=== PATIENT | male | born 1945 | race Caucasian/White ===

== ENCOUNTER 2017-02-08 06:30 | Day surgery (SDC) | payer MEDICARE, OTHER ==
[~2017-02-08] VITALS: Ht 182.9 cm; Wt 107.0 kg
--- NOTE | ~2017-02-08 | OP ---
PATIENT NAME: HELLEN CARBAJAL MEDICAL RECORD: [id number] :44 LOCATION:[facility] ADMISSION DATE: SURGEON: HATTIE NICKERSON MD DATE OF OPERATION: 02/08/2017 PREOPERATIVE DIAGNOSIS: End-stage renal disease, N18.6. POSTOPERATIVE DIAGNOSIS: End-stage renal disease, N18.6. OPERATION PERFORMED: Implantation of a right forearm PTFE loop AV graft using 6-mm diameter standard wall [place] Propaten PTFE. SURGEON: Hattie Nickerson MD. ANESTHESIA: Axillary block plus general with LMA per SALES ORDER ADMINISTRATOR. REFERRING PHYSICIAN: Ling Ivey MD. PREOPERATIVE NOTE: Mr. Carbajal is a 71-year-old white male patient of Dr. Ivey and Dr. Ferrer of [place]. He has end-stage renal disease and is on hemodialysis and needs dialysis access. He is brought to the operating room at this time with plans to try to create a fistula. If that is not possible or successful, then implant a graft in his right arm. PROCEDURE IN DETAIL: Under axillary block supplemented with general anesthesia with an LMA per SALES ORDER ADMINISTRATOR, the patient is prepped and draped in a sterile manner. He was examined with ultrasound after applying topical nitroglycerin paste and with the use of a [place] drain as a proximal venous tourniquet. The cephalic vein in the forearm and wrist appeared suitable, the radial artery was large and not diseased. I thought that it was possible that an AV fistula there might be possible. I made a longitudinal incision and dissected the vein and prepared it for an end-to-side anastomosis. Tributaries and branches were divided between 3-0 Vicryl ligatures or Hemoclips. The vein was beveled and flushed with heparinized saline and hydrostatic dilation performed. The artery was exposed and controlled with doubly-looped Silastic tapes. It was opened and flushed proximally and distally with heparinized saline and the end-of-vein to [id number] anastomosis was carried out with running 6-0 Prolene. Upon completion of the anastomosis and release of the occluding loops, which was after application of Evicel, good flow was initially established in the fistula. 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 I subsequently abandoned the fistula, which had gone on to thrombose spontaneously. It was ligated with a 3-0 Vicryl in multiple and the wound then irrigated with saline. Some fibrillar hemostatic material was necessary for hemostasis as well as electrocautery. The wound was infiltrated and irrigated with 0.25% Marcaine with epinephrine and closed with interrupted inverted 3-0 Vicryl and running intracuticular 4-0 Monocryl after it was used for counterincision for the next part of the operation. I made a transverse incision and exposed the basilic vein on the medial aspect of the arm and the brachial artery. The vessels were controlled with Silastic tapes. I chose a 6-mm diameter standard wall thickness [place] Propaten PTFE graft. It was beveled and anastomosed end-to-side of basilic vein with running OPERATIVE REPORT [id number] HELLEN CARBAJAL 6-0 Prolene after the vein was flushed with heparinized saline proximally and distally. That anastomosis also was treated with Evicel. The graft was placed in a loop configuration subcutaneous tunnel using the initial distal forearm incision for counter incision. It was beveled and shortened and anastomosed end-to-side to the brachial artery with 6-0 Prolene after the artery was opened and flushed with heparinized saline and the graft flushed with heparinized saline, again, after being placed in the tunnel before the anastomosis. When the anastomosis was complete and the suture line treated with Evicel, the occluding loops and clamps were released and excellent flow was established in the new graft. This wound also was irrigated with saline and irrigated with 0.25% Marcaine with epinephrine. The wound was dry, was closed with interrupted inverted 3-0 Vicryl and running intracuticular 4-0 Monocryl and Dermabond glue. Both incisions were dressed with Maxorb Ag, Tegaderm and Cavilon skin prep. The patient was then awakened and with a satisfactorily functioning new AV graft taken to the recovery room. Blood loss during the operation was trivial and was unreplaced. All sponges, instruments and needles were accounted for. No drain was used and no surgical specimen was submitted for histopathology. PLAN: The patient will be discharged later today from the outpatient department and will continue his usual diet, medications and dialysis schedule. He will return to see me in my office in 10-14 days and is given a hand-signed printed prescription for tramadol 50 mg #20. He can take 1 p.o. q.4 hours p.r.n. pain. He is advised elevate his arm to help reduce swelling and edema. He and his brother are given my personal cell phone number, which he may use to call me over this holiday weekend if he has any problems. TRANSINT:[id number] Voice Confirmation ID: [id number] DOCUMENT ID: [id number] HATTIE NICKERSON MD CC: LING IVEY MD and GUILLERMO FERRER MD [id number] DICTATION DATE: 02/08/17 1337 INSPECTOR PAPER PRODUCTS: 02/08/17 2233 [facility] 02/08/17 [id number] [place] [address]
[2017-02-08] MEDS ORDERED: CARAFATE1 G PO (07:14)
[2017-02-08] MEDS ORDERED: FUROSEMIDE40 MG PO (07:15)
[2017-02-08] MEDS ORDERED: COREG 3.1253.125 MG PO (07:16)
[2017-02-08] MEDS ORDERED: HYTRIN5 MG PO (07:17)
[2017-02-08] MEDS ORDERED: PROTONIX40 MG PO (07:17)
[2017-02-08] MEDS ORDERED: CORDARONE200 MG PO (07:18)
[2017-02-08 07:56] VITALS: BP 105/67; Ht 182.9 cm; Wt 107.0 kg
[2017-02-08 08:21] LABS: EOSINOPHILS 1.8 % (0-7); HEMATOCRIT 29.1 % (42.0-54.0); HEMOGLOBIN 9.2 g/dL (13.5-17.5); IMMATURE GRANULOCYTES 0.1 % (0-5); LYMPHOCYTES 19.1 % (15-50); MCH 27.8 pg (26.0-34.0); MCHC 31.6 g/dL (31.0-37.0); MCV 87.9 fL (80.0-100.0); MEAN PLATELET VOLUME 9.5 fL (7.4-10.4); MONOCYTES 9.6 % (2-11); NEUTROPHILS 68.4 % (40-80); PLATELET COUNT 210 10x3/uL (130-400); RBC 3.31 10x6/uL (4.20-6.10); RDW 19.5 % (11.5-14.5); WBC 7.1 10x3/uL (4.8-10.8)
[2017-02-08 08:42] LABS: APTT 32.9 SECONDS (22.8-39.4); INR 1.42 (0.85-1.17); PROTIME 17.3 SECONDS (11.6-15.0)
[2017-02-08 08:46] LABS: ANION GAP 15.2 mmol/L (8-16); CALCIUM 8.3 mg/dL (8.5-10.1); CARBON DIOXIDE 25.2 mmol/L (21.0-32.0); CREATININE - SERUM 4.4 mg/dL (0.6-1.3); POTASSIUM - SERUM 3.4 mmol/L (3.5-5.1)
[2017-02-08] MEDS ORDERED: ULTRAM50 MG PO (13:13)
== END 2017-02-08 15:10 | disposition home or self-care (01) ==
LOC: D.OPS 06:30
PROVIDERS: Internal Medicine Nephrology
DX: E11.22 Type 2 diabetes mellitus with diabetic chronic kidney disease (principal); I13.2 Hypertensive heart and chronic kidney disease with heart failure and with stage 5 chronic kidney disease, or end stage renal disease; I50.9 Heart failure, unspecified; N18.6 End stage renal disease; Z95.5 Presence of coronary angioplasty implant and graft; Z95.1 Presence of aortocoronary bypass graft; J44.9 Chronic obstructive pulmonary disease, unspecified

== ENCOUNTER 2017-03-15 06:32 | Day surgery (SDC) | payer MEDICARE, OTHER ==
[~2017-03-15] VITALS: Ht 182.9 cm; Wt 105.2 kg
[~2017-03-15 06:32] MED LIST: CARAFATE1 G PO; CORDARONE200 MG PO; COREG 3.1253.125 MG PO; FUROSEMIDE40 MG PO; HYTRIN5 MG PO; PROTONIX40 MG PO; ULTRAM50 MG PO
[2017-03-15 07:26] LABS: BASOPHILS 1.3 % (0-2); EOSINOPHILS 2.9 % (0-7); HEMATOCRIT 38.5 % (42.0-54.0); HEMOGLOBIN 12.1 g/dL (13.5-17.5); IMMATURE GRANULOCYTES 0.2 % (0-5); LYMPHOCYTES 23.1 % (15-50); MCH 29.7 pg (26.0-34.0); MCHC 31.4 g/dL (31.0-37.0); MCV 94.6 fL (80.0-100.0); MEAN PLATELET VOLUME 9.4 fL (7.4-10.4); MONOCYTES 8.9 % (2-11); NEUTROPHILS 63.6 % (40-80); PLATELET COUNT 202 10x3/uL (130-400); RBC 4.07 10x6/uL (4.20-6.10); RDW 22.1 % (11.5-14.5); WBC 6.2 10x3/uL (4.8-10.8)
[2017-03-15 07:32] LABS: APTT 28.2 SECONDS (22.8-39.4); INR 1.37 (0.85-1.17); PROTIME 16.8 SECONDS (11.6-15.0)
[2017-03-15 07:50] LABS: ANION GAP 14.1 mmol/L (8-16); CARBON DIOXIDE 27.3 mmol/L (21.0-32.0); CREATININE - SERUM 4.1 mg/dL (0.6-1.3); POTASSIUM - SERUM 3.4 mmol/L (3.5-5.1)
[2017-03-15] MEDS ORDERED: NEURONTIN 400400 MG PO (08:04)
[2017-03-15] MEDS ORDERED: BAYER CHEWABLE81 MG PO (08:04)
[2017-03-15 08:17] VITALS: BP 103/51; Ht 182.9 cm; Wt 105.2 kg
--- NOTE | 2017-03-15 11:00 | NUR ---
TIFFANIE METCALF IN USE ON HIGH, NO SCD PT CAN NOT REMEMBER IF HX OF BLOOD CLOTS
--- NOTE | 2017-03-15 12:09 | NUR ---
USE SLING UNTIL FEELING AND MOTION RETURNS R/T TO BLOCK NOT PROCEDURE
[2017-03-15] MEDS ORDERED: PLAVIX75 MG PO (12:28)
--- NOTE | 2017-03-16 14:15 | OP ---
PATIENT NAME: HELLEN CARBAJAL MEDICAL RECORD: [id number] :44 LOCATION:[facility] ADMISSION DATE: SURGEON: HATTIE NICKERSON MD DATE OF OPERATION: 03/15/2017 REFERRING PHYSICIAN: Dr. Ling Ivey. PREOPERATIVE DIAGNOSES: End-stage renal disease with dependence on chronic hemodialysis and status post recent implantation of right forearm brachial artery to break to basilic vein PTFE loop AV graft, now with thrombosis of the graft. POSTOPERATIVE DIAGNOSES: End-stage renal disease with dependence on chronic hemodialysis and status post recent implantation of right forearm brachial artery to break to basilic vein PTFE loop AV graft, now with thrombosis of the graft. OPERATION PERFORMED: Percutaneous fistulogram with ultrasound-guided access times 2 and AngioJet mechanical thrombolysis and balloon angioplasty of venous anastomotic and proximal of basilic vein stenosis and selective catheterization and performance of a right brachial artery arteriogram to rule out embolus. SURGEON: Hattie Nickerson MD. ANESTHESIA: Supraclavicular block per POCKET ASSEMBLER with additional sedation. PREOPERATIVE NOTE: Mr. Carbajal is a 71-year-old white male with end-stage renal disease, dialyzing now with a right internal jugular tunneled dialysis catheter. I recently implanted a right forearm loop PTFE graft and it was noted to be thrombosed on his first visit to my office postop. He is brought back to the operating room now to perform a fistulogram and thrombectomy, possibly open, though I hope to be able to do it with endovascular technique. The arm is quite swollen and I believe that there is probably plenty of soft tissue pressure up against the graft to allow this. The patient does have dermal flare with erythema of the skin overlying the course of the graft and still he is receiving antibiotic therapy for this with vancomycin at dialysis. DESCRIPTION OF PROCEDURE: This patient under nerve block in supine position and prepped and draped in a sterile manner and sedated and monitored per POCKET ASSEMBLER. The graft was accessed with ultrasound guidance in the venous limb with micropuncture technique and a 6-Saudi Arabian introducer was inserted and directed in an antegrade manner towards the venous anastomosis. Contrast was injected under minimal pressure and extensive thrombus was seen in the venous limb of the graft and in the basilic vein just above the anastomosis. This was confirmed on ultrasound with the clot extending about an inch above the venous anastomosis. Over a 0.035 angled Glidewire, I then used an AngioJet to lyse thrombus in this limb of the graft and in the venous anastomosis and outflow and I used then a 6 mm angioplasty balloon to dilate a stricture of about 95% there in the venous anastomosis. Repeated contrast injection revealed persistent or rebound type of stenosis and I subsequently dilated this entire area with an 8 mm diameter x 60 mm long angioplasty balloon. This required replacement of the 6-Saudi Arabian introducer for the 7-Saudi Arabian introducer. Repeated contrast injection looked good other than some persistent roughening of the margins of the vein. The graft was OPERATIVE REPORT [id number] HELLEN CARBAJAL accessed the second time, still in the venous limb with micropuncture technique and ultrasound guidance and a 6-Saudi Arabian sheath inserted. This was directed in an antegrade manner towards the arterial anastomosis. A 0.035 Glidewire was passed and this wire did cross the arterial anastomosis into the brachial artery. I used the AngioJet device to lyse thrombus within the body and arterial limb of the graft and then passed a glide catheter over the wire up into the brachial artery selectively and performed an angiogram, which revealed good runoff through the ulnar and radial arteries without evidence of embolus or thrombosis or stenosis. The plug was then removed from the arterial anastomosis with a 4-Saudi Arabian Hernan embolectomy catheter and at that point, an excellent thrill returned to the graft and good continuous pulsatile Doppler flow was noted. I did perform another contrast injection to visualize the venous anastomosis and there was some return of stenosis then and I repeatedly dilated it with the 8-mm diameter balloon and achieved essentially 0% residual stenosis, although there was still some roughening or irregularity of the margins of the edges of the vein. The patient was given 3000 units of heparin during the procedure and this was not reversed. The sheaths were removed and hemostasis obtained with 2 pyhjha-[id number] 4-0 Prolene sutures and some direct pressure for about 5 minutes. The puncture sites were dressed with Ultrafoam and Cavilon with Tegaderm. The patient was awakened from sedation and taken to the recovery room in stable condition. Blood loss during the operation was about 10 cc, none was replaced intraoperatively. All sponges, instruments and needles were accounted for and no drain was used. PLAN: I will plan for the patient to go home today and continue his home medications, diet and dialysis schedule. He is advised to wear a sling for about 24 hours until his neurologic function returns in his arm as the nerve block wears off. After that time, he can use his arm as tolerated. He is advised elevate the arm higher than his heart off and on or as much as possible to help diminish the edema. He is given no new prescriptions today, but is given an appointment to return to see me in my office next week, on . I am also going to give him a prescription today for him to start on Plavix 75 mg 1 daily with plans to treat him with this for 1 month and hopefully will be able to discontinue it. TRANSINT:[id number] Voice Confirmation ID: [id number] DOCUMENT ID: [id number] HATTIE NICKERSON MD at 1415 CC: LING IVEY MD [id number] DICTATION DATE: 03/15/171246 METROLOGY SPECIALIST: 03/15/172054 [facility] 03/15/17 [id number] [place] [address]
== END 2017-03-15 13:30 | disposition home or self-care (01) ==
LOC: D.OPS 06:32
PROVIDERS: Anesthesiology
DX: T82.868A Thrombosis due to vascular prosthetic devices, implants and grafts, initial encounter (principal); N18.6 End stage renal disease; Z99.2 Dependence on renal dialysis; Z79.2 Long term (current) use of antibiotics

== ENCOUNTER → 2017-07-19 13:50 | Outpatient (CLI) | payer MEDICARE, OTHER ==
[2017-03-15 08:17] VITALS: BMI 31.5
[~2017-07-19 13:50] MED LIST changes: +BAYER CHEWABLE81 MG PO; +NEURONTIN 400400 MG PO; +PLAVIX75 MG PO
== END | disposition home or self-care (01) ==
LOC: D.CT 06-28 10:30
DX: I73.9 Peripheral vascular disease, unspecified (principal)

== ENCOUNTER 2017-07-26 07:02 | Day surgery (SDC) | payer MEDICARE, OTHER ==
[2017-07-26 07:31] LABS: BASOPHILS 0.7 % (0-2); HEMATOCRIT 33.5 % (42.0-54.0); HEMOGLOBIN 11.1 g/dL (13.5-17.5); IMMATURE GRANULOCYTES 0.2 % (0-5); LYMPHOCYTES 16.6 % (15-50); MCH 33.2 pg (26.0-34.0); MCHC 33.1 g/dL (31.0-37.0); MCV 100.3 fL (80.0-100.0); MEAN PLATELET VOLUME 11.4 fL (7.4-10.4); MONOCYTES 8.8 % (2-11); NEUTROPHILS 70.7 % (40-80); RBC 3.34 10x6/uL (4.20-6.10); RDW 18.3 % (11.5-14.5); WBC 5.4 10x3/uL (4.8-10.8)
[2017-07-26 07:32] LABS: PLATELET COUNT 155 10x3/uL (130-400)
[2017-07-26 07:38] LABS: APTT 31.8 SECONDS (22.8-39.4); INR 1.56 (0.85-1.17); PROTIME 18.6 SECONDS (11.6-15.0)
[2017-07-26 07:48] LABS: ANION GAP 16.8 mmol/L (8-16); CALCIUM 7.9 mg/dL (8.5-10.1); CARBON DIOXIDE 24.2 mmol/L (21.0-32.0); CREATININE - SERUM 6.4 mg/dL (0.6-1.3)
[2017-07-26 09:30] VITALS: BP 130/67; BMI 31.2
--- NOTE | 2017-07-26 14:07 | NUR ---
PT STATES HAS SLIGHT HEADACHE
--- NOTE | 2017-07-26 15:01 | NUR ---
IV DC WITH CATHER TIP INTACT
--- NOTE | 2017-07-26 15:37 | NUR ---
1400 SPOKE WITH MACY KUHN APN , NEW ORDERS, ALL ORDERS FAXED TO [facility] PER MACY KUHN APN, INFORMED OF ALL NICKERSON ORDERS
--- NOTE | 2017-08-01 10:26 | OP ---
PATIENT NAME: HELLEN CARBAJAL MEDICAL RECORD: [id number] :44 [facility] ADMISSION DATE: SURGEON: HATTIE NICKERSON MD DATE OF OPERATION: 07/26/2017 PREOPERATIVE DIAGNOSES: End-stage renal disease and dependence on hemodialysis and thrombosis of right forearm PTFE loop AV graft. OPERATION PERFORMED: Ultrasound-guided access times 2, fistulogram, AngioJet mechanical thrombolysis, balloon angioplasty of recurrent venous anastomotic stenosis, drug-coated balloon angioplasty of drug-coated stenosis, and selective brachial artery arteriogram. SURGEON: Hattie Nickerson MD ANESTHESIA: General with LMA per COMMUNITY DEVELOPMENT MANAGER. REFERRING PHYSICIAN: Dr. Ivey. PREOPERATIVE NOTE: Mr. Carbajal is a very nice 72-year-old white male with end-stage renal disease, presently on hemodialysis. Not too long ago, I implanted a forearm loop PTFE graft on the right and it has thrombosed a couple of times and had a couple of interventions. It thrombosed again. On Saturday of this week, I inserted a HemoSplit catheter at [facility] and have him come to the hospital today for another attempt to salvage the graft. Under anesthesia in supine position, the patient was prepped and draped in sterile manner. The fistula was accessed times 2 with ultrasound guidance and micropuncture technique. Two 6-Dominican introducers were inserted in opposing directions accessing via the venous limb of the loop graft. The venous limb was then crossed with a 0.035 angled Glidewire and an AngioJet catheter then used to lyse thrombus within the venous portion of the graft and within the basilic vein, which it was anastomosed to. A 6 mm angioplasty balloon was then used to dilate the venous limb of the graft and the venous anastomosis. There was a 70% to 80% recurrent stenosis at the venous anastomosis. The patient was systemically heparinized with 5000 units of heparin and the venous runoff examined with contrast injection and digital subtraction technique. This demonstrated some residual thrombus and residual mild stenosis in the basilic vein above the anastomosis. These areas were redilated again with a larger 7mm diameter balloon and then the segment flushed with heparinized saline. The opposing introducer was then utilized. A 0.035 Glidewire was used to cross the arterial anastomosis and passed into the brachial artery in order to obtain a selective brachial arteriogram. An angled glide catheter was inserted into the proximal brachial artery and contrast injected and digital subtraction angiography demonstrated an occluded arterial limb as one would expect and no evidence of embolic phenomenon. The arterial plug was then pulled with an over the wire 5-Dominican Hernan embolectomy catheter and thrombus within the body of the graft and the arterial limb lysed with the AngioJet and the angioplasty balloon used to further open the graft and macerate residual thrombus. Pulsatile inflow was restored to the graft. Repeat contrast injection through a selective brachial artery catheter demonstrated flow in the graft without evidence of an arterial anastomotic stenosis and there was some thrombus in the distal brachial artery. The guidewire and catheter were manipulated into the distal brachial artery and the OPERATIVE REPORT [id number] HELLEN CARBAJAL thrombus removed there with passage of the over the wire Hernan embolectomy catheter. When flow was thus restored in the graft, the venous anastomosis was again imaged and the stenosis noted to be somewhat elastic and recurring. It was dilated again then with a 7-mm diameter Conquest angioplasty high pressure balloon inflated up to 20 atmospheres and held inflated for 1 minute. After it was deflated, repeated contrast injection demonstrated flow restored in the fistula and a very nice angiographic result with complete ablation of the stenosis. Because this was a recurring problem and wishing to avoid the use of a stent in this location that is the PTFE to basilic vein anastomosis at the level of the antecubital space, I used a Lutonix 8 mm x 60 mm drug-coated balloon and as per protocol this was inflated up to 20 atmospheres of pressure in the venous anastomosis and left inflated there for 2 minutes. The balloon was deflated and the catheter removed and repeat contrast injection revealed no evidence of any residual stenosis and good flow in the graft. The introducers were removed and hemostasis obtained at the puncture sites with 4-0 Prolene ysmjrm-[id number]-qeobo sutures. Also to achieve hemostasis, 10 mg of protamine was administered. The patient tolerated all of this quite well and was awakened and taken to the recovery room with a good thrill and bruit over the graft. Blood loss was about 50 cc, perhaps, none was replaced certainly. All sponges, instruments, and needles were accounted for. No drain was used and no surgical specimen was submitted for histopathology. I had the patient given 150 mg dose of Plavix in the recovery room and tomorrow he will resume his usual daily dose of Plavix or clopidogrel 75 mg p.o. daily and aspirin 81 mg enteric coated 1 p.o. daily. He will resume his usual diabetic renal diet and continue all of his other medications and continue his routine dialysis schedule. The dialysis unit may begin using the AV graft at his next dialysis session. I would like to see him back at the [facility] in 2-3 weeks on Saturday and assuming the graft is working and it has proven to be likely a reliable access then I can remove the tunneled dialysis catheter at that time. TRANSINT:[id number] Voice Confirmation ID: [id number] DOCUMENT ID: [id number] HATTIE NICKERSON MD at 1026 CC: LING IVEY MD [id number] DICTATION DATE: 07/26/17 1406 APPLICATIONS SCIENTIST: 07/26/17 1438 [facility] 07/26/[address] [address]
== END 2017-07-26 15:15 | disposition home or self-care (01) ==
LOC: D.OPS 07:02
PROVIDERS: Surgery
DX: E11.22 Type 2 diabetes mellitus with diabetic chronic kidney disease (principal); I12.0 Hypertensive chronic kidney disease with stage 5 chronic kidney disease or end stage renal disease; N18.6 End stage renal disease; Z99.2 Dependence on renal dialysis; I25.10 Atherosclerotic heart disease of native coronary artery without angina pectoris; J44.9 Chronic obstructive pulmonary disease, unspecified; G47.30 Sleep apnea, unspecified; K21.9 Gastro-esophageal reflux disease without esophagitis; Z95.1 Presence of aortocoronary bypass graft; Z01.812 Encounter for preprocedural laboratory examination

== ENCOUNTER 2017-09-21 14:03 | Inpatient (IN) | payer MEDICARE, OTHER ==
[~2017-09-21] VITALS: Ht 182.9 cm; Wt 103.4 kg
[2017-09-21 15:35] LABS: BASOPHILS 0.7 % (0-2); EOSINOPHILS 1.8 % (0-7); HEMATOCRIT 35.9 % (42.0-54.0); HEMOGLOBIN 12.2 g/dL (13.5-17.5); IMMATURE GRANULOCYTES 0.2 % (0-5); MCH 34.1 pg (26.0-34.0); MCV 100.3 fL (80.0-100.0); MEAN PLATELET VOLUME 10.7 fL (7.4-10.4); MONOCYTES 5.7 % (2-11); NEUTROPHILS 76.6 % (40-80); PLATELET COUNT 153 10x3/uL (130-400); RBC 3.58 10x6/uL (4.20-6.10); RDW 15.8 % (11.5-14.5); WBC 5.7 10x3/uL (4.8-10.8)
[2017-09-21 15:47] LABS: ALBUMIN 2.9 g/dL (3.4-5.0); ANION GAP 18.4 mmol/L (8-16); BILIRUBIN - TOTAL 1.19 mg/dL (0.2-1.3); CALCIUM 8.5 mg/dL (8.5-10.1); CARBON DIOXIDE 21.6 mmol/L (21.0-32.0); CREATININE - SERUM 10.3 mg/dL (0.6-1.3); PROTEIN - SERUM 8.2 g/dL (6.4-8.2)
--- NOTE | 2017-09-21 17:57 | NUR ---
CALLED [facility] AND THEY ARE AWARE OF ALTERED LABS AND NO FURTHER ORDERS AT THIS TIME, WAITING ON TO SEE PT FOR FURTHER ORDERS.
--- NOTE | 2017-09-21 19:33 | NUR ---
RECEIVED REPORT, WILL ASSUME CARE OF PT, PT SITTING IN CHAIR, DENIES ANY NEEDS AT THIS TIME, WILL CONTINUE PLAN OF CARE
[2017-09-21 21:22] VITALS: BP 117/63
--- NOTE | 2017-09-22 | NUR ---
PT RESTING WELL, NO CHANGES NOTED. ASSESSMENTS UNCHANGED. CALL LIGHT WITHIN REACH. WILL MONITOR.
[2017-09-22 01:32] VITALS: BP 115/73
[2017-09-22 04:27] VITALS: BP 102/66
[2017-09-22 06:11] LABS: BASOPHILS 0.7 % (0-2); EOSINOPHILS 2.9 % (0-7); HEMATOCRIT 34.7 % (42.0-54.0); HEMOGLOBIN 11.9 g/dL (13.5-17.5); LYMPHOCYTES 21.6 % (15-50); MCH 34.3 pg (26.0-34.0); MCHC 34.3 g/dL (31.0-37.0); MEAN PLATELET VOLUME 10.1 fL (7.4-10.4); NEUTROPHILS 67.8 % (40-80); PLATELET COUNT 147 10x3/uL (130-400); RBC 3.47 10x6/uL (4.20-6.10); RDW 16.1 % (11.5-14.5); WBC 5.5 10x3/uL (4.8-10.8)
[2017-09-22 06:36] LABS: ALBUMIN 2.8 g/dL (3.4-5.0); ANION GAP 23.4 mmol/L (8-16); BILIRUBIN - TOTAL 1.39 mg/dL (0.2-1.3); CALCIUM 8.4 mg/dL (8.5-10.1); CREATININE - SERUM 10.5 mg/dL (0.6-1.3); POTASSIUM - SERUM 4.4 mmol/L (3.5-5.1)
--- NOTE | 2017-09-22 07:34 | NUR ---
ASSESSMENT DONE. DENIES NEEDS.
[2017-09-22 09:06] VITALS: BP 99/62
--- NOTE | 2017-09-22 09:44 | NUR ---
UP TO CHAIR WITH CALL LIGHT IN REACH. WILL CONT. PLAN OF CARE.
[2017-09-22 12:00] VITALS: BP 153/66
--- NOTE | 2017-09-22 12:53 | NUR ---
TO OR PER BED
--- NOTE | 2017-09-22 15:45 | NUR ---
RECIVED FROM OR PER BED. TO ROOM 213. LT UPPER DRSG CLEAN AND DRY. FAINT B/T.
--- NOTE | 2017-09-22 16:58 | NUR ---
WITHOUT CHANGES OR DISTRESS NOTED AT THIS TIME. DENIES NEEDS.
[2017-09-22 17:20] LABS: PLT FUNCT.(P2Y12) PLAVIX 240 PRU (194-418)
[2017-09-22 19:00] VITALS: BP 88/43
--- NOTE | 2017-09-22 19:37 | NUR ---
RECEIVED REPORT, WILL ASSUME CARE OF PT, PT SLEEPING ON L.SIDE, NO DISTRESS NOTICE, BED IS LOW, SRX2, CALL LIGHT IN REACH, WILL CONTINUE PLAN OF CARE
[2017-09-23 00:29] VITALS: BP 86/50
[2017-09-23 05:03] VITALS: BP 85/48
--- NOTE | 2017-09-23 07:36 | NUR ---
AM ROUNDING- RECEIVED REPORT FROM RUG HOOKER HAND NURSE TOD. PT IS CURRENTLY SITTING UP IN BED WITH BI-PAP ON RESTING. ON MONITOR SHOWING CONTROLLED A-FIB, HR 79. IV SEEN TO LEFT FOREARM THAT IS CURRENTLY SALINE LOCKED. RESERVE RIGHT ARM FOR AVF. NO NEED AT THIS CURRENT TIME. WILL CONTINUE TO MONITOR AND CONTINUE WITH PLAN OF CARE.
[2017-09-23 08:14] VITALS: BP 81/46
[2017-09-23 13:01] VITALS: Ht 182.9 cm; Wt 103.4 kg
--- NOTE | 2017-09-23 13:29 | NUR ---
PT IS IN DIALYSIS CURRENTLY.
--- NOTE | 2017-09-23 15:12 | NUR ---
PT BACK FROM DIALYSIS.
--- NOTE | 2017-09-23 16:58 | NUR ---
Patient Name: HELLEN ONTIVEROS Admission Status: ER Accout number: [id number] Admission Date: 09-21-2017 : 1945 Admission Diagnosis: Attending: HELLEN SAMANO Current LOS: 2 Anticipated DC Date: 09-23-2017 Planned Disposition: Home Primary Insurance: MEDICARE A & B Discharge Planning Comments: * Is the patient Alert and Oriented? Yes 0 * How many steps to enter\exit or inside your home? RAMP 0 * PCP DR. HAMPTON 0 * Pharmacy [facility] IN [place] 0 * Preadmission Environment Home with Family 0 * ADLs Partial Dependent 0 * Partial ADLs (Assistance needed) Bathing 0 * Equipment CPAP Oxygen Rolling Walker 0 * Other Equipment HOME OXYGEN ONLY [facility] IN [place] - MEDICAL EQUIPMENT PROVIDER 0 * List name and contact numbers for known caregivers / representatives who currently or will assist patient after discharge: ANDERS ONTIVEROS, SON, 0 * Community resources currently utilized Other 0 * Please name any agencies selected above. OUTPATIENT DIALYSIS, TTS, 1100AM, [facility], MEDICAID TRANSPORTATION 0 * Additional services required to return to the preadmission environment? No 0 * Can the patient safely return to the preadmission environment? Yes 0 * Has this patient been hospitalized within the prior 30 days at any hospital? No 0 CM MET WITH PT IN ROOM TO DISCUSS DISCHARGE PLANNING AND NEEDS. PT REPORTS LIVING AT HOME DEPENDENTLY WITH SPOUSE WHO ASSISTS WITH BATHING NEEDED. PT HAS OXYGEN CONCENTRATOR, CPAP AND ROLLING WALKER FROM [facility] IN [place]. PT HAS OUTPATIENT DIALYSIS ON TTS SCHEDULE AT [facility], MEDICAID BUS TRANSPORTS TO AND FROM THE DIALYSIS UNIT. PT HAS NO OUTSIDE SERVICES ASSISTING IN THE HOME. CM DISCUSSED AVAILABILITY OF HOME HEALTH, REHAB SERVICES AND MEDICAL EQUIPMENT. PT DENIES DISCHARGE NEEDS, REPORTS HIS SON WILL PICK HIM UP FOR DISCHARGE HOME. MATERIAL FLOW ENGINEER NOTIFIED. Science Teacher: Kulwant Elder
--- NOTE | 2017-09-23 17:20 | NUR ---
D/C INSTRUCTIONS EXPLAINED TO PT. D/C PAPERWORK SIGNED BY PT AND PLACED IN CHART. IV TO LEFT FOREARM REMOVED WITH CATH TIP INTACT. COVERED SITE WITH 4X4 GUAZE PADS AND SECURED WITH TEGADERM. PRESSURE HELD FIRMLY OVER SITE DUE TO BLEEDING. HEART MONITOR REMOVED AND RETURNED TO STEPHANY IN TELEMETRY. PT IS EATING NOW THEN WILL D/C AFTER WITH FAMILY MEMBERS.
--- NOTE | 2017-09-23 17:45 | NUR ---
PT D/C VIA WHEELCHAIR.
--- NOTE | 2017-09-23 18:30 | OP ---
PATIENT NAME: HELLEN CARBAJAL MEDICAL RECORD: [id number] :43 LOCATION:D. D.2131 ADMISSION DATE:09/21/17 SURGEON: HATTIE NICKERSON MD DATE OF OPERATION: 09/22/2017 PREOPERATIVE DIAGNOSES: End-stage renal disease, dependence on hemodialysis; and thrombosed right forearm loop PTFE AV graft. POSTOPERATIVE DIAGNOSES: End-stage renal disease, dependence on hemodialysis; and thrombosed right forearm loop PTFE AV graft. OPERATION PERFORMED: Percutaneous fistulogram with ultrasound-guided micropuncture access, AngioJet mechanical thrombolysis, balloon angioplasty of venous anastomotic stenosis, and also selective catheterization of brachial and radial arteries with selective arteriogram of brachial and radial arteries. PREOPERATIVE NOTE: Mr. Carbajal is a 72-year-old white male patient with end-stage renal disease, who is on chronic outpatient hemodialysis. He has been dialyzing with a right forearm loop PTFE graft between the brachial artery laterally and the basilic vein medially. He presented for dialysis on Saturday or Saturday with thrombosed graft. He has not had dialysis now, for about 6 days, and needs dialysis. He was admitted to the hospital yesterday by Dr. Samano and I was consulted. He is brought to the operating room now for mechanical thrombolysis procedure, and if unsuccessful, then a tunneled dialysis catheter insertion. DESCRIPTION OF PROCEDURE: Under general endotracheal anesthesia (CONTROL DIRECTOR opted for endotracheal intubation due to the patient's history of severe reflux), in supine position, the patient was prepped and draped in sterile manner. The left arm was examined with ultrasound and the course of the PTFE graft in the forearm was clearly outlined. The venous limb of the graft was accessed with ultrasound guidance and micropuncture technique at 2 separate sites and two 6-Citizen Of [place] introducers were inserted in opposing directions. A guidewire was then passed through the distal sheath and up through the venous anastomosis and into the basilic vein. The AngioJet catheter was used to lysis thrombus there. On the initial ultrasound exam, I had seen nonocclusive or partially occluding thrombus extending proximally in the basilic vein, fdc to the axilla, well above the venous anastomosis. So, I lysed clot in the basilic vein with the AngioJet catheter up to the axillary vein. After that, contrast injection demonstrated an 80% stenosis of the venous anastomosis and I dilated this successfully with an 8-mm diameter balloon. The patient was heparinized with 5000 units of heparin and the venous anastomosis and basilic vein were flushed with heparinized saline. I then used the more proximal introducer and advanced a guidewire through the body of the graft and through the arterial anastomosis initially into the radial artery. An angled glide catheter was then passed and a selective right radial artery arteriogram was done, which revealed normal-looking arteries without any evidence of atherosclerotic plaque, stenosis, or emboli. The catheter and guidewire again were then maneuvered up into the proximal brachial artery and repeat contrast injection with digital subtraction demonstrated good flow in the brachial artery and no evidence of any stenosis or emboli. Flow to the hand was more dominantly via the ulnar artery, but both were patent in the hand. The AngioJet catheter was then used to lyse thrombus within the body of the graft and the arterial limb, and a 4-Citizen Of [place] Hernan embolectomy catheter was OPERATIVE REPORT [id number] HELLEN CARBAJAL used to retrieve the arterial plug. Excellent pulsatile flow was restored in the graft at this point. Repeat contrast injection with the [facility] selective catheter in the brachial artery demonstrated no evidence of embolization. On the repeated injection, there was a mild, about an 80% stenosis of the basilic vein above the elbow, which I subsequently also dilated with an 8-mm x 80-mm angioplasty balloon. The areas of stenosis were dilated with full effacement of the balloon, and on repeat contrast injections, zero residual stenosis present. The patient's heparin was partially reversed with a total of 20 mg of protamine given intravenously by animal maintenance supervisor. The ports were removed and hemostasis was obtained at the puncture sites with [id number] 4-0 Prolene sutures and direct pressure. Subsequently, the sites were dressed with Avitene Ultrafoam, Tegaderm, and Cavilon skin prep. The patient was awakened, extubated, and taken to the recovery room. Blood loss during the operation was about 50 cc, none was replaced intraoperatively. All sponges, instruments, and needles were accounted for. No drain was used and no surgical specimen was submitted for histopathology. PLAN: We will notify the dialysis personnel in nephrology that Mr. Carbajal can now have dialysis if they want to go ahead with that this afternoon. I believe that he will need to have dialysis probably a couple of times and show that he is stable and the access reliable before he is discharged to home. Note that this patient's graft thrombosed while he was taking Plavix and I think that we should consider changing him from Plavix to either Effient or Brilinta. TRANSINT:[id number] Voice Confirmation ID: [id number] DOCUMENT ID: [id number] HATTIE NICKERSON MD at 1830 CC: HELLEN SAMANO MD [id number] DICTATION DATE: 09/22/17 1502 CERTIFIED INDOOR ENVIRONMENTALIST: 09/22/17 1624 DIS IN 09/23/17 [facility] [address] [place] [address]
== END 2017-09-23 17:46 | disposition home or self-care (01) | DRG 252 ==
LOC: D.ER 14:03 → D.M2 16:44
PROVIDERS: Family Medicine; Surgery; ADMIT Internal Medicine Nephrology
PROC: 03C73ZZ Extirpation of Matter from Right Brachial Artery, Percutaneous Approach (ICD-10-PCS; 2017-09-22)
PROC: 03773ZZ Dilation of Right Brachial Artery, Percutaneous Approach (ICD-10-PCS; 2017-09-22)
PROC: 037B3ZZ Dilation of Right Radial Artery, Percutaneous Approach (ICD-10-PCS; 2017-09-22)
PROC: B51W1ZZ Fluoroscopy of Dialysis Shunt/Fistula using Low Osmolar Contrast (ICD-10-PCS; principal; 2017-09-22 11:30)
PROC: 5A1D70Z Performance of Urinary Filtration, Intermittent, Less than 6 Hours Per Day (ICD-10-PCS; 2017-09-23)
DX: T82.858A Stenosis of other vascular prosthetic devices, implants and grafts, initial encounter (principal); N18.6 End stage renal disease; I12.0 Hypertensive chronic kidney disease with stage 5 chronic kidney disease or end stage renal disease; R18.8 Other ascites; Y83.8 Other surgical procedures as the cause of abnormal reaction of the patient, or of later complication, without mention of misadventure at the time of the procedure; Z86.73 Personal history of transient ischemic attack (TIA), and cerebral infarction without residual deficits; E11.22 Type 2 diabetes mellitus with diabetic chronic kidney disease; Z99.2 Dependence on renal dialysis; J44.9 Chronic obstructive pulmonary disease, unspecified; I25.10 Atherosclerotic heart disease of native coronary artery without angina pectoris; Z95.1 Presence of aortocoronary bypass graft; I73.9 Peripheral vascular disease, unspecified; I48.91 Unspecified atrial fibrillation; I95.9 Hypotension, unspecified

== ENCOUNTER 2017-10-09 08:24 | Inpatient (IN) | payer MEDICARE, OTHER ==
[~2017-10-09] VITALS: Ht 182.9 cm; Wt 96.2 kg
--- NOTE | ~2017-10-09 | HEMODYNAMI ---
PATIENT:HELLEN ONTIVEROS MEDICAL RECORD: [id number] : 43 [facility] ADMISSION DATE: 10/09/17 Generatedon:10/14/201716:37 Patient name: HELLEN ONTIVEROS Patient #: [id number] SSN: D OB: 1945 Date of study: 10/14/2017 Page: Of Hemodynamic Procedure Report Patient Data Patient Demographics Procedure consent was obtained First Name: HELLEN Gender: Male Last Name: WESTON : 1945 [facility] Initial: D Age: 72 year(s) Patient #: [id number] Race: Unknown Additional ID: [id number] Contact details [address]: [address] [place] [address] State: [place] City: [place] Zip code: [address] Past Medical History Allergies Allergen Reaction Date Comments Reported Morphine 10/14/2017 Other allergy 10/14/2017 haldol Admission Admission Data Admission Date: 10/09/2017 Admission Time: 8:44 Room #: D.2109 Weight (lbs.): 221 Weight (kg.): 100.24 Procedure Procedure Types Cath Procedure Peripheral Cath Diagnostic Procedure Cath Peripheral Abd/Extremity Extremities AFRO Lower Ext Arterio Procedure Description Procedure Date Procedure Date: 10/14/2017 Procedure Start Time: 15:50 Procedure Staff Name Function David Castro MD Performing Physician Radha Hansen RT Monitor Jakob Lewis RT Scrub Pham Guillaume RN Nurse Radha Hansen RT Director Safety Council Procedure Data Cath Procedure Fluoroscopy Diagnostic fluoroscopy Total fluoroscopy Time: time: 10.2 min 10.2 min Diagnostic fluoroscopy Total fluoroscopy dose: dose: 1071 mGy 1071 mGy Entry Location Entry Primary Successful Side Size Upsize Upsize Entry Closure Succes sful Closure Location (Fr) 1 (Fr) 2 (Fr) Remarks Device Remarks Femoral Left Exoseal artery Diagnostic catheters Device Type Used For End Catheter Placement Merit ULTRA BOLUS FLUSH 5Fr 65CM catheter ([id number]) Angiodynamics SOS OMNI 2 NON B 5FR 65CM catheter ([id number]) Procedure Medications Medication Administration Route Dosage Fentanyl I.V. 25 mcg Versed I.V. 0.5 mg Fentanyl I.V. 25 mcg Versed I.V. 0.5 mg Hemodynamics Rest Heart Rate: 80 (bpm) Snapshots Pre Cath Intra NCS Post Cath Vital Signs Time Heart Resp SPO2 etCO2 NIBP Rhythm Pain Sedation Rate (ipm) (%) (mmHg) (mmHg) Status Level (bpm) 15:52:20 60 18 95 0 90/63(84) NSR 0 (11) 10(A) , No pain 15:56:22 67 16 98 0 95/61(82) NSR 0 (11) 10(A) , No pain 16:00:33 70 13 0 81/59(74) NSR 0 (11) 10(A) , No pain 16:04:33 64 14 100 0 89/55(66) NSR 0 (11) 10(A) , No pain 16:08:37 73 16 91 0 79/55(73) NSR 0 (11) 10(A) , No pain 16:12:37 70 13 99 0 87/56(70) NSR 0 (11) 10(A) , No pain 16:16:36 66 13 98 0 81/60(75) NSR 0 (11) 10(A) , No pain 16:21:33 75 15 100 0 91/55(77) NSR 0 (11) 10(A) , No pain 16:25:37 64 14 100 0 89/60(78) NSR 0 (11) 10(A) , No pain 16:29:39 69 13 98 0 81/59(69) NSR 0 (11) 10(A) , No pain 16:33:40 62 13 0 86/54(73) NSR 0 (11) 10(A) , No pain Medications Time Medication Route Dose Verified Delivered Reason Notes Effectivene ss by by 15:53:57 Fentanyl I.V. 25 David Nath for mcg Markell Castro RN sedation 15:54:10 Versed I.V. 0.5 David Nath for mg Markell Castro RN sedation 16:23:20 Fentanyl I.V. 25 David Nath for mcg Markell Castro RN sedation 16:23:29 Versed I.V. 0.5 Markell Doran RN sedation MD Procedure Log Time Note 15:08:15 Patient Weight : 221 lbs 15:09:00 Use device set IR Diagnostic 15:09:02 Sterile Angiographic Pack opened to sterile field. 15:09:03 Bag Decanter (2001S) opened to sterile field. 15:09:04 ACIST Manifold (37462) opened to sterile field. 15:09:05 ACIST Hand Control (82343) opened to sterile field. 15:09:06 ACIST Syringe (24690) opened to sterile field. 15:09:33 TUBING Contrast Injection High Pressure (ARZ348T) opened to sterile field. 15:09:34 Adaptive Ozone Solutions DOC .035 guide wire opened to sterile field. 15:09:35 SHEATH 5FR Thida (JUM541) opened to sterile field. 15:09:36 Micropuncture VSI 4FR kit opened to sterile field. 15:09:54 A Noemalife ULTRA BOLUS FLUSH 5Fr 65CM catheter ([id number]) was advanced over the wire and used for . 15:19:51 Time tracking: Regular hours 15:20:27 Plan of Care:Hemodynamics will remain stable., Cardiac rhythm will remain stable., Comfort level will be maintained., Respiratory function will remain adequate., Patient/ family verbilizes understanding of procedure., Procedure tolerated without complication., Recovers from procedure without complications.. 15:20:36 Patient received from Med II to IR Alert and oriented. Tansferred to table in Supine position. 15:20:40 Signed procedure consent form obtained from patient. 15:20:48 H&P Date Dictated: 10/14/2017 Within 30 days and on chart.. 15:20:50 Pre-procedure instructions explained to patient. 15:20:51 Pre-op teaching completed and patient verbalized understanding. 15:20:53 Family in waiting room. 15:20:56 Patient NPO since Midnight. 15:21:12 Patient allergic to Morphine 15:21:55 Patient allergic to Other allergyhaldol 15:22:08 Is the patient allergic to Iodine/contrast media? No. 15:22:14 Is patient on blood thinner?Yes, last dose 15:22:47 Patient diabetic? Yes. 15:22:49 If diabetic: On Metformin? No 15:22:52 - 15:22:58 ----Pre-sedation anethsthesia assessment.---- 15:23:03 Previous problem with sedation/anesthesia? No ? 15:23:13 Snore? Yes 15:23:20 Deviated septum? No 15:23:22 Opens mouth fully? Yes 15:23:24 Sticks out tongue? Yes 15:23:29 Airway obstruction? Yes copd 15:23:45 Dentures? No ? 15:23:51 Sleep apnea? Yes 15:24:10 Pre procedure: right dorsailis pedis pulse Doppler 15:24:15 Pre procedure: left dorsailis pedis pulse Doppler 15:24:20 Pre procedure: right posterior tibial pulse Doppler 15:24:26 Pre procedure: left posterior tibial pulse Doppler 15:24:34 Right groin area was prepped with chlora-prep and draped in sterile fashion 15:24:36 Alarms reviewed 15:24:37 Sharps counted by scrub and verified 15:25:08 - 15:47:43 Left groin area was prepped with chlora-prep and draped in sterile fashion 15:47:47 Physician arrived 15:49:45 Sedation plan: IV Moderate Sedation Medication:Versed, Fentanyl 15:50:03 --------ALL STOP TIME OUT------ 15:50:04 Final Timeout: patient, procedure, and site verified with staff and physician. All members of the team are in agreement. 15:50:19 Procedure started. 15:50:19 Full Disclosure recording started 15:50:26 Local anesthetic to left femerol artery with Lidocaine 1% by David Castro MD.INITIAL ACCESS ONLY 15:50:30 Arterial access obtained using ultrasound guidance. 15:51:16 ECG and BP/O2 sat monitors applied to patient. 15:51:17 Vital chart was started 15:51:18 Baseline sample Acquired. 15:51:22 - 15:53:57 Fentanyl 25 mcg I.V. was administered by Pham Guillaume RN; for sedation ; 15:54:10 Versed 0.5 mg I.V. was administered by Pham Guillaume RN; for sedation; 16:01:54 Terumo ANGLE 180L glide wire opened to sterile field. 16:01:55 Terumo 5FR ANGLED 65CM glide catheter opened to sterile field. 16:06:06 TORQUE DEVICE PLASTIC .038 ( TD01) opened to sterile field. 16:09:58 A AngioFieldView Solutions OMNI 2 NON B 5FR 65CM catheter ([id number]) was advanced over the wire and used for . 16:23:20 Fentanyl 25 mcg I.V. was administered by Pham Guillaume RN; for sedation ; 16:23:29 Versed 0.5 mg I.V. was administered by Pham Guillaume RN; for sedation; 16:30:27 CO2 MONITOR IN USE. MOUTH BREATHER AND SHALLOW 16:32:36 A sheath was inserted into the Left Femoral artery 16:32:36 Sheath removed intact; hemostasis achieved with Exoseal to the Left Femoral artery. 16:32:49 EXOSEAL 5Fr (EX500) opened to sterile field. 16:33:14 Procedure ended.(Physican Out) 16:33:32 Fluoroscopy time 10.20 minutes. 16:33:38 Flurop Dose total: 1071 16:33:38 Fluoroscopy dose: 1071 mGy 16:34:35 Procedure and supply charges have been captured, reviewed, submitted an d are correct. 16:34:38 Post Procedure Pulses reassessed and unchanged 16:36:47 Report given to LessThan3 II. 16:37:42 Vital chart was stopped Device Usage Item Name Manufacture Quantity Catalog Number [facility] inimal Lot# / Charge Number Stock Stock Serial# Code Sterile Cardinal 1 [id number] 327919 5 Angiographic Health Pack Bag Decanter Microtek 1 754802 25061 255179 5 () Medical Inc. ACIST Manifold Acist Medical 1 58412 546736 234282 714975 5 (80258) Systems Inc ACIST Hand Acist Medical 1 19531 507511 710862 174778 5 Control Systems Inc (27623) ACIST Syringe Acist Medical 1 37621 806795 802222 436913 2 0 (62235) Systems Inc TUBING [facility] Medical 1 [id number] 820081 647766 897091 5 Contrast Injection High Pressure (RFD392B) Cook DOC .035 Cook Medical 1 G49570 837816 975288 5 3568330 guide wire SHEATH 5FR Terumo 1 EJM357 992238 110174 504834 4 0 Thida (NNL016) Micropuncture VSI VASCULAR 1 7266V 930077 671771 5 VSI 4FR kit SOLUTIONS Noemalife ULTRA Merit Medical 1 [id number] 709045 464182 5 BOLUS FLUSH 5Fr 65CM catheter ([id number]) Terumo ANGLE Terumo 1 MY3205 777648 595852 241046 5 180L glide wire Terumo 5FR Terumo 1 CG507 929064 832693 5 ANGLED 65CM glide catheter TORQUE DEVICE Isabella 1 TD01 463390 514493 951006 5 PLASTIC .038 ( Scientific TD01) Angiodynamics Angiodynamics 1 [id number] 991905 65478 725424 5 SOS OMNI 2 NON B 5FR 65CM catheter ([id number]) EXOSEAL 5Fr Cardinal 1 EX500 459822 879511 431409 1 0 [id number] (EX500) Health Signature Audit [place] Stage Time Signature Unsigned Intra-Procedure 10/14/2017 Radha Hansen 4:37:39 PM RT(R) Signatures Monitor : Radha Hansen RT Signature : Date : Time : [facility] [address] [place] [address]
[2017-10-09] MEDS ORDERED: ZYLOPRIM100 MG PO (09:55)
[2017-10-09] MEDS ORDERED: CELEXA10 MG PO (09:56)
[2017-10-09] MEDS ORDERED: FENOFIBRATE54 MG PO (09:56)
[2017-10-09] MEDS ORDERED: ELIQUIS5 MG PO (09:57)
[2017-10-09 09:59] VITALS: BP 97/54; BMI 31.2
--- NOTE | 2017-10-09 10:16 | NUR ---
PT ARRIVED TO UNIT A&O SITTING ON EDGE OF BED WITH FAMILY MEMBER AT BEDSIDE. 20 GUAGE PIV INSERTED TO L.FA X1 STICK AND BLOOD DRAW COMPLETED. ADMISSION WORK-UP COMPLETED AND WILL BEGIN PTS ORDERED MEDICATIONS. BLOOD CULTURES DRAWN AND WILL BEGIN IVPB ANBX. NO CURRENT NEEDS WILL CPOC.
[2017-10-09 10:44] LABS: BASOPHILS 0.3 % (0-2); EOSINOPHILS 1.9 % (0-7); HEMOGLOBIN 11.2 g/dL (13.5-17.5); IMMATURE GRANULOCYTES 0.3 % (0-5); LYMPHOCYTES 12.2 % (15-50); MCH 33.6 pg (26.0-34.0); MCHC 32.9 g/dL (31.0-37.0); MCV 102.1 fL (80.0-100.0); MEAN PLATELET VOLUME 11.4 fL (7.4-10.4); MONOCYTES 9.4 % (2-11); NEUTROPHILS 75.9 % (40-80); PLATELET COUNT 151 10x3/uL (130-400); RBC 3.33 10x6/uL (4.20-6.10); RDW 17.2 % (11.5-14.5); WBC 6.5 10x3/uL (4.8-10.8)
[2017-10-09 10:58] LABS: ALBUMIN 2.5 g/dL (3.4-5.0); BILIRUBIN - TOTAL 1.84 mg/dL (0.2-1.3); CALCIUM 8.3 mg/dL (8.5-10.1); CARBON DIOXIDE 24.9 mmol/L (21.0-32.0); CREATININE - SERUM 7.2 mg/dL (0.6-1.3); PHOSPHOROUS 7.2 mg/dL (2.5-4.9); POTASSIUM - SERUM 4.9 mmol/L (3.5-5.1); PROTEIN - SERUM 7.3 g/dL (6.4-8.2)
[2017-10-09 12:54] VITALS: BP 99/60
--- NOTE | 2017-10-09 15:48 | NUR ---
Wound care consult: Admitted for BLE edema, weeping ulcers/blisters. Pt states it's been going on for several months and has been applying silvadene cream as per his primary physician in [facility]. Noted BLE are bright red/shiny, edematous and have open wounds that appear to be old ruptured blisters. All are superficial. Some weeping is noted as evidenced by moist areas on pad under his legs. Toes are edematous and red and have scabs and pinpoint spots of dark scabs/escar on tips. My recommendation is to keep legs elevated and spray on AloeVista clear barrier to protect skin. Always wear non-skid socks when up to bathroom or walking. Wound care will monitor.
[2017-10-09 15:59] VITALS: BP 108/59
--- NOTE | 2017-10-09 16:25 | NUR ---
CALLED TO INQUIRE ABOUT PT AND LEGS WERE DISCUSSED. PT REQUESTING HELP TO BR AND WAS ASSISTED AND HAD SMALL BROWN SOFT FORMED BOWEL MOVEMENT. PT BACK IN BED AND DENIES ANY FURTHER NEEDS AT THIS TIME. ELEVATED BILAT FEET ON PILLOW AND WILL CTM.
[2017-10-09 22:15] VITALS: BP 97/43
[2017-10-10 04:00] VITALS: BP 91/64
[2017-10-10 05:58] LABS: BASOPHILS 0.5 % (0-2); EOSINOPHILS 1.9 % (0-7); HEMATOCRIT 31.9 % (42.0-54.0); HEMOGLOBIN 10.8 g/dL (13.5-17.5); IMMATURE GRANULOCYTES 0.2 % (0-5); LYMPHOCYTES 14.2 % (15-50); MCH 34.2 pg (26.0-34.0); MCHC 33.9 g/dL (31.0-37.0); MCV 100.9 fL (80.0-100.0); MEAN PLATELET VOLUME 10.4 fL (7.4-10.4); MONOCYTES 8.2 % (2-11); PLATELET COUNT 129 10x3/uL (130-400); RBC 3.16 10x6/uL (4.20-6.10); RDW 16.8 % (11.5-14.5); WBC 6.2 10x3/uL (4.8-10.8)
[2017-10-10 06:39] LABS: ANION GAP 20.8 mmol/L (8-16); CALCIUM 8.2 mg/dL (8.5-10.1); CARBON DIOXIDE 22.2 mmol/L (21.0-32.0); VANCOMYCIN - RANDOM 10.5 ug/mL (10.0-20.0)
[2017-10-10 08:46] VITALS: BP 97/62
--- NOTE | 2017-10-10 09:18 | NUR ---
DISCUSSED WITH RADIOLOGY IF PT COULD STAND FOR US OF LEGS ORDERED. PT WOULD HAVE TO STAND FOR OVER AN HOUR, RENAL CO FOUNDER AND DIRECTOR MACY HERE AND SAID HE DEFINITELY WILL NOT BE ABLE TO. WILL CALL XRAY AND LET THEM KNOW SO CAN CONTINUE WITH PLAN.
--- NOTE | 2017-10-10 09:24 | NUR ---
CALLED INQUIRING ABOUT US OF PTS LEGS I TOLD HIM THAT RADIOLOGY STATED HE'D HAVE TO STAND FOR OVER AN HOUR AND HE STATED HE WILL CALL THEM AND DISCUSS OTHER OPTIONS.
[2017-10-10 10:47] VITALS: Ht 182.9 cm; Wt 96.2 kg
--- NOTE | 2017-10-10 10:55 | NUR ---
AT BEDSIDE ASSESSING PT. ITS VERY IMPORTANT TO KEEP BILAT FEET ELEVATED ABOVE HEART. WILL CANCEL ULTRASOUND FOR NOW AND STATES HE WILL PUT IN SOME OTHER ORDERS. NO CURRENT NEEDS AT THIS TIME. WILL CPOC.
--- NOTE | 2017-10-10 11:20 | NUR ---
PT LEAVING FLOOR FOR DIALYSIS VIA BED. NO CURRENT NEEDS. WILL CTM.
[2017-10-10 19:00] VITALS: BP 93/54
--- NOTE | 2017-10-10 19:52 | NUR ---
PT IN BED RESTING QUIETLY. BREATHING EVEN AND UNLABORED. BED IN LOW POSITION, CALL LIGHT WITHIN REACH. WILL CTM.
--- NOTE | 2017-10-10 22:01 | NUR ---
CONSENTS FOR ATERIGORAM TOMORROW 10/11/[address] HERNANDEZ SIGNED AND PLACED IN FRONT OF PT CHART.
--- NOTE | 2017-10-11 00:34 | NUR ---
PHARMACY STATED THEY DID NOT HAVE THE COCOA BUTTER THAT WAS ORDERED FOR THE PT TO PUT ON THEIR LEGS. STATED THEY WILL TRY TO GET IT IN THE AM. WILL PASS ON IN REPORT.
[2017-10-11 04:00] VITALS: BP 86/47
[2017-10-11 05:26] LABS: BASOPHILS 0.5 % (0-2); EOSINOPHILS 1.9 % (0-7); HEMATOCRIT 33.9 % (42.0-54.0); IMMATURE GRANULOCYTES 0.3 % (0-5); LYMPHOCYTES 15.4 % (15-50); MCH 33.1 pg (26.0-34.0); MCHC 32.4 g/dL (31.0-37.0); MCV 102.1 fL (80.0-100.0); MEAN PLATELET VOLUME 9.9 fL (7.4-10.4); MONOCYTES 10.9 % (2-11); PLATELET COUNT 111 10x3/uL (130-400); RBC 3.32 10x6/uL (4.20-6.10); WBC 6.4 10x3/uL (4.8-10.8)
[2017-10-11 05:42] LABS: INR 1.82 (0.85-1.17); PROTIME 20.5 SECONDS (11.6-15.0)
[2017-10-11 06:23] LABS: ANION GAP 17.6 mmol/L (8-16); CALCIUM 8.2 mg/dL (8.5-10.1); CARBON DIOXIDE 25.1 mmol/L (21.0-32.0); CREATININE - SERUM 6.4 mg/dL (0.6-1.3); POTASSIUM - SERUM 3.7 mmol/L (3.5-5.1); VANCOMYCIN - RANDOM 8.7 ug/mL (10.0-20.0)
[2017-10-11 08:55] VITALS: BP 84/45
[2017-10-11 09:08] LABS: INR 1.86 (0.85-1.17); PROTIME 20.8 SECONDS (11.6-15.0)
--- NOTE | 2017-10-11 10:12 | NUR ---
IR TEAM AT BEDSIDE DISCUSSING PLAN OF CARE WITH DAUGHTER AND PT. PTS INR IS TOO HIGH FOR ARTERIOGRAM TODAY AND WILL HAVE TO BE RESCHEDULED. PT VERBALIZED UNDERSTANDING, PT NOW CAN EAT WILL ORDER HIM A TRAY. WILL CTM.
--- NOTE | 2017-10-11 10:51 | NUR ---
BROUGHT PT DOWN TO DIALYSIS VIA BED. PT DENIES ANY NEEDS FROM ME AT THIS TIME. WILL CPOC.
--- NOTE | 2017-10-11 11:11 | NUR ---
DIALYSIS CALLED STATING PT NEEDS TO COME BACK R/T DIARRHEA. DISCUSSED WITH RENAL AND THEY SAID HE CAN HOLD TODAY AND RETURN TOMORROW.
--- NOTE | 2017-10-11 12:45 | NUR ---
INITIATED PTS IVPB VANCOMYCIN INFUSING VIA L.FA PIV WITH DRSG CDI AND SWAB CAPS IN USE. PT SITTING UP IN BED JUST FINISHED LUNCH AND WEARING CPAP WATCHING TV. PT DENIES ANY CURRENT PAIN OR NEEDS. CL IN REACH. WILL CPOC.
[2017-10-11 15:46] VITALS: BP 90/50
--- NOTE | 2017-10-11 18:45 | NUR ---
PT STATES HE HAD AN OVERALL GOOD DAY BUT C/O HIS LEGS ACHING AND HURTING. DAUGHTER AT BEDSIDE AND DENY AND QUESTIONS OR CONCERNS. CL IN REACH. WILL PASS ONTO NIGHTSHIFT.
--- NOTE | 2017-10-11 20:23 | NUR ---
PT IN BED RESTING QUIETLY. BREATHING EVEN AND UNLABORED. BED IN LOW POSITION, CALL LIGHT WITHIN REACH. WILL CTM.
[2017-10-11 21:04] VITALS: BP 91/60
[2017-10-12 00:52] VITALS: BP 75/48
[2017-10-12 05:09] LABS: BASOPHILS 0.6 % (0-2); EOSINOPHILS 2.9 % (0-7); HEMATOCRIT 34.2 % (42.0-54.0); HEMOGLOBIN 11.3 g/dL (13.5-17.5); IMMATURE GRANULOCYTES 0.2 % (0-5); LYMPHOCYTES 18.9 % (15-50); MCH 33.7 pg (26.0-34.0); MCV 102.1 fL (80.0-100.0); MEAN PLATELET VOLUME 9.8 fL (7.4-10.4); MONOCYTES 10.6 % (2-11); NEUTROPHILS 66.8 % (40-80); PLATELET COUNT 107 10x3/uL (130-400); RBC 3.35 10x6/uL (4.20-6.10); RDW 17.1 % (11.5-14.5); WBC 5.5 10x3/uL (4.8-10.8)
[2017-10-12 05:21] VITALS: BP 84/55
[2017-10-12 05:35] LABS: ANION GAP 19.3 mmol/L (8-16); CALCIUM 8.1 mg/dL (8.5-10.1); CARBON DIOXIDE 24.3 mmol/L (21.0-32.0); CREATININE - SERUM 7.6 mg/dL (0.6-1.3); POTASSIUM - SERUM 3.6 mmol/L (3.5-5.1)
--- NOTE | 2017-10-12 07:15 | NUR ---
RECEIVED REPORT. ASSUMED CARE OF PATIENT. RESTING IN BED WITH EYES OPEN, CPAP IN USE. NO DISTRESS. DENIES NEEDS. LEGS ELEVATED ON PILLOWS. CALL LIGHT WITHIN REACH.
[2017-10-12 08:00] VITALS: BP 95/73
--- NOTE | 2017-10-12 08:50 | NUR ---
PATIENT LEFT UNIT VIA BED FOR DIALYSIS AT THIS TIME. NO DISTRESS UPON LEAVING UNIT.
--- NOTE | 2017-10-12 10:35 | NUR ---
MEDICATED FOR PAIN AT THIS TIME WHILE PATIENT IN DIALYSIS. NO DISTRESS. VANCOMYCIN GIVEN TO DIALYSIS NURSE TO INFUSE AT DIALYSIS PER NURSE PRACTITIONERWILFRED.
--- NOTE | 2017-10-12 13:25 | NUR ---
RECEIVED REPORT FROM DIALYSIS. 4 LITERS REMOVED FROM PATIENT TODAY. TOLERATED DIALYSIS WELL. NO DISTRESS. PATIENT BACK TO UNIT SOON.
--- NOTE | 2017-10-12 13:50 | NUR ---
PATIENT BACK TO UNIT VIA BED. NO DISTRESS. SITTING TO SIDE OF BED CONSUMING NOON MEAL AT THIS TIME. CALL LIGHT WITHIN REACH.
--- NOTE | 2017-10-12 15:42 | NUR ---
DRESSING CHANGES PROVIDED TO BILATERAL LOWER EXTREMITIES. NO DISTRESS.
--- NOTE | 2017-10-12 16:33 | NUR ---
MEDICATED WITH IMMODIUM FOR LOOSE STOOL. PATIENT HAS HX OF GASTRIC RESECTION AND HAS FREQUENT LOOSE STOOLS IF HE DOESNT TAKE THIS MEDICATION AT HOME.
--- NOTE | 2017-10-12 16:45 | NUR ---
MEDICATED FOR PAIN AT THIS TIME. NO DISTRESS. PATIENTS DAUGHTER AT BEDSIDE. CALL LIGHT WITHIN REACH.
[2017-10-12 20:00] VITALS: BP 95/60
--- NOTE | 2017-10-12 20:11 | NUR ---
PT RESTING IN BED. O2 @ 3L/NC. LEFT WRIST IV WITH NS @ KVO. RESERVE RIGHT FOR AVF. RECEIVED HEMODIALYSIS TODAY. DRESSINGS TO BLE C/D/I. MONITOR AND CPOC. SEE ASSESSMEMT.
--- NOTE | 2017-10-12 21:01 | NUR ---
BEDTIME MEDS GIVEN.
[2017-10-13] VITALS: BP 83/40
--- NOTE | 2017-10-13 00:52 | NUR ---
PT HIT THE TOES OF HIS RIGHT FOOT ON THE BATHROOM DOOR AND IT RIPPED OFF THE SCABS AND HE BEGAN TO BLEED. CLEANSED TOES, DRESSING APPLIED. PT NOW IN BED WITH BIPAP AND RESTING.
[2017-10-13 05:06] LABS: BASOPHILS 0.9 % (0-2); EOSINOPHILS 2.6 % (0-7); HEMOGLOBIN 10.8 g/dL (13.5-17.5); IMMATURE GRANULOCYTES 0.4 % (0-5); LYMPHOCYTES 14.9 % (15-50); MCH 33.6 pg (26.0-34.0); MCHC 32.7 g/dL (31.0-37.0); MCV 102.8 fL (80.0-100.0); MEAN PLATELET VOLUME 11.2 fL (7.4-10.4); MONOCYTES 12.8 % (2-11); NEUTROPHILS 68.4 % (40-80); PLATELET COUNT 118 10x3/uL (130-400); RBC 3.21 10x6/uL (4.20-6.10); WBC 5.3 10x3/uL (4.8-10.8)
[2017-10-13 05:39] LABS: ANION GAP 15.8 mmol/L (8-16); CALCIUM 8.2 mg/dL (8.5-10.1); CARBON DIOXIDE 27.3 mmol/L (21.0-32.0); MAGNESIUM - SERUM 1.7 mg/dL (1.8-2.4); PHOSPHOROUS 5.7 mg/dL (2.5-4.9); POTASSIUM - SERUM 3.1 mmol/L (3.5-5.1); VANCOMYCIN - RANDOM 15.9 ug/mL (10.0-20.0)
[2017-10-13 05:44] LABS: CREATININE - SERUM 5.6 mg/dL (0.6-1.3)
--- NOTE | 2017-10-13 07:00 | NUR ---
RECEIVED REPORT. ASSUMED CARE OF PATIENT. EYES OPEN, RESTING IN BED WITH ATTENTION TOWARD TELEVISION. DENIES NEEDS. NO DISTRESS. CALL LIGHT WITHIN REACH.
[2017-10-13 08:00] VITALS: BP 89/56
[2017-10-13 09:19] VITALS: BP 84/53
--- NOTE | 2017-10-13 11:33 | NUR ---
RESTING IN BED WITH ATTENTION TOWARD TELEVISION. LEGS ELEVATED. ALBUMIN INFUSING VIA GRAVITY AT THIS TIME. NO DISTRESS. CALL LIGHT WITHIN REACH. DENIES NEEDS.
[2017-10-13 12:00] VITALS: BP 94/53
[2017-10-13 16:00] VITALS: BP 91/57
--- NOTE | 2017-10-13 16:36 | NUR ---
DRESSING CHANGES COMPLETED TO BILATERAL LOWER EXTREMITIES. TOLERATED WELL. NO DISTRESS.
[2017-10-13 20:00] VITALS: BP 92/50
--- NOTE | 2017-10-13 20:01 | NUR ---
RESUMED CARE OF PT, UP ON SIDE OF BED RESPIRATIONS EVEN AND UNLABORED ON 3LPM VIA NC. FAMILY AT BEDSIDE. IMMODIUM CAPSULE GIVEN PER PT REQUEST. NO FURTHER NEEDS AT THIS TIME, WILL CONTINUE TO MONITOR. SEE NURSE ASSESSMENT.
--- NOTE | 2017-10-13 22:15 | NUR ---
LOWER LEG DRESSINGS CHANGED, CALL LIGHT IN REACH. WILL CONTINUE TO MONITOR.
[2017-10-14] VITALS: BP 89/53
--- NOTE | 2017-10-14 01:47 | NUR ---
LYING IN BED WITH EYES CLOSED, CALL LIGHT IN REACH.
[2017-10-14 04:53] LABS: EOSINOPHILS 2.9 % (0-7); HEMATOCRIT 31.8 % (42.0-54.0); HEMOGLOBIN 10.5 g/dL (13.5-17.5); IMMATURE GRANULOCYTES 0.2 % (0-5); LYMPHOCYTES 15.7 % (15-50); MCH 33.5 pg (26.0-34.0); MCV 101.6 fL (80.0-100.0); MEAN PLATELET VOLUME 10.9 fL (7.4-10.4); MONOCYTES 12.4 % (2-11); NEUTROPHILS 67.8 % (40-80); PLATELET COUNT 106 10x3/uL (130-400); RBC 3.13 10x6/uL (4.20-6.10); RDW 16.9 % (11.5-14.5); WBC 4.9 10x3/uL (4.8-10.8)
[2017-10-14 05:10] LABS: APTT 33.7 SECONDS (22.8-39.4); INR 1.69 (0.85-1.17); PROTIME 19.3 SECONDS (11.6-15.0)
[2017-10-14 05:17] LABS: ANION GAP 18.5 mmol/L (8-16); CALCIUM 8.2 mg/dL (8.5-10.1); CARBON DIOXIDE 22.5 mmol/L (21.0-32.0); CREATININE - SERUM 6.6 mg/dL (0.6-1.3); VANCOMYCIN - RANDOM 19.3 ug/mL (10.0-20.0)
--- NOTE | 2017-10-14 06:31 | NUR ---
NO CHANGES FROM PREVIOUS ASSESSMENT, CALL LIGHT IN REACH. PLAN OF CARE DISCUSSED INR 1.69 THIS AM, REMAINS NPO AT THIS TIME.
[2017-10-14 06:42] VITALS: BP 93/53
--- NOTE | 2017-10-14 07:26 | NUR ---
PT IN BED, RESP EVEN AND UNLABORED, LT HAND IV INFUSING NS AT 50CC/HR. NATH DRAINING YELLOW URINE TO GRAVITY. PT DENIES ANY NEEDS AT THIS TIME. CALL LIGHT IN REACH, FAMILY AT BEDSIDE, NAD NOTED, WILL CONTINUE PLAN OF CARE.
--- NOTE | 2017-10-14 07:30 | NUR ---
PT UP TO SIDE OF BED, RESP EVEN AND UNLABORED, LT FA SL. DRESSINGS NOTED TO BILAT LETS AND TO RT FOOT. PT RATES PAIN LEVEL OF 6/10. DENIES ANY NEEDS AT THIS TIME. CALL LIGHT IN REACH, NAD NOTED, WILL CONTINUE PLAN OF CARE.
[2017-10-14 07:58] VITALS: BP 86/54
--- NOTE | 2017-10-14 09:00 | NUR ---
ADMINSITERED 650MG OF TYLENOL FOR PAIN LEVEL OF 8/10. ALSO ADMINISTERED NEUROTIN. DRESSING CHANGE PROVIDED TO BILAT LOWER LEGS ,AND RT FOOT. PT TOLERATED PROCEDURE WELL. CONSENTS SIGNED AND PLACED ON CHART FOR ARTERIOGRAM TODAY. DAUGHTER AT BEDSIDE, PT DENIES ANY NEEDS AT THIS TIME. CALL LIGHT IN REACH, NAD NOTED, WILL CONTINUE TO MONITOR.
--- NOTE | 2017-10-14 09:20 | NUR ---
PT TRANSFERED TO DIALYSIS VIA BED, C-PAP WENT WITH PT. NAD NOTED.
--- NOTE | 2017-10-14 13:46 | NUR ---
PT TRANSFERED BACK TO ROOM 210, VIA BED, PT DENIES ANY NEEDS AT THIS TIME, CALL LIGHT IN REACH, DAUGHTER AT BEDSIDE, NAD NOTED, WILL CONTINUE TO MONITOR.
--- NOTE | 2017-10-14 15:15 | NUR ---
PT TRANSFERED TO IR VIA BED, NAD NOTED.
--- NOTE | 2017-10-14 17:02 | NUR ---
RECEIVED PT BACK TO ROOM 2108, VIA BED, VITAL SIGNS STABLE, NO BLEEDING OR HEMATOMA NOTED TO LT GROIN, DERSSING CLEAN AND INTACT. PLACED PT ON FREQUENT VITAL SIGNS. DAUGHTER AT BEDSIDE, CALL LIGHT IN REACH, NAD NOTED, WILL CONTINUE TO MONITOR.
--- NOTE | 2017-10-14 21:03 | NUR ---
PT IS ALERT LAYING IN BED, RESPIRATIONS EVEN AND UNLABORED. DAUGHTER IS AT BEDSIDE, SHE HELPED PT TO BATHROOM, NO PROBLEMS GETTING UP. CALL LIGHT IN REACH, WILL CONTINUE PLAN OF CARE.
[2017-10-14 22:39] VITALS: BP 91/54
--- NOTE | 2017-10-15 03:15 | NUR ---
PT IS ALERT, SITTING ON SIDE OF BED. DENIES NEEDS OR PAIN AT THIS TIME, RESPIRATIONS EVEN AND UNLABORED. CALL LIGHT IN REACH, WILL CONTINUE WITH PLAN OF CARE.
[2017-10-15 06:16] VITALS: BP 84/52
--- NOTE | 2017-10-15 07:09 | NUR ---
PT IN BED, USING C-PAP MACHINE. RESP EVEN AND UNLABORED, SL LT FA IV AT THIS TIME. BILAT LE DRESSING CLEAN AND INTACT. PT DENIES ANY NEEDS AT THIS TIME. CALL LIGHT IN REACH, NAD NOTED, WILL CONTINUE PLAN OF CARE.
[2017-10-15 07:54] VITALS: BP 85/59
--- NOTE | 2017-10-15 08:28 | NUR ---
PT TRANSFERED TO DIALYSIS VIA BED, NAD NOTED.
--- NOTE | 2017-10-15 09:22 | NUR ---
ADMINISTERED TRAMADOL FOR PAIN LEVEL OF 05/06. PT GETTING DIALYSIS AT THIS TIME, NAD NOTED.
--- NOTE | 2017-10-15 12:38 | NUR ---
RECEIVED PT BACK TO ROOM 2108, VIA WHEELCHAIR, PT DENIE ANY NEEDS AT THIS TIME. DAUGHTER AT BEDSIDE. NAD NOTED, CALL LIGHT IN REACH.
--- NOTE | 2017-10-15 13:41 | NUR ---
Nutrition follow-up: Diet: Renal PO intake ~75% average of meals Labs reviewed Wt: 222# Pt s/p AFRO 10/13/17 +BM PO intake good at this time. Will continue to provide food choices and honor food preferences. RDN following.
--- NOTE | 2017-10-15 14:25 | NUR ---
WENT INTO PT'S ROOM TO CHANGE DRESSING TO BILAT LEGS. PT STATED " I AM GOING TO TAKE A SHOWER LATER, SO I WANT TO WAIT TO HAVE THEM CHANGED." WILL CHECK BACK LATER WITH PT AFTER HE GETS A SHOWER. PT REQUESTING A CUP OF WATER, WILL PROVIDE PT WITH WATER.
[2017-10-15 15:30] VITALS: BP 94/54
--- NOTE | 2017-10-15 16:44 | NUR ---
Patient Name: HELLEN ONTIVEROS Admission Status: Elective Accout number: [id number] Admission Date: 10-09-2017 : 1945 Admission Diagnosis:NON-PRESSURE CHRONIC ULCER OTH PRT UNSP FOOT W UNSP SEV Attending: Dereck Ivey Current LOS: 6 Anticipated DC Date: 10-16-2017 Planned Disposition: Home with Home Health Primary Insurance: MEDICARE A & B PLANNED EXTERNAL PROVIDER: [facility] Discharge Planning Comments: * Is the patient Alert and Oriented? Yes 0 * How many steps to enter\\exit or inside your home? RAMP 0 * PCP DR. HAMPTON 0 * Pharmacy [facility] IN [place] 0 * Preadmission Environment Home with Family 0 * ADLs Independent 0 * Equipment CPAP Oxygen Rolling Walker 0 * Other Equipment HOME OXYGEN CONCENTRATOR ONLY [facility] IN [place] - MEDICAL EQUIPMENT PROVIDER 0 * List name and contact numbers for known caregivers / representatives who currently or will assist patient after discharge: ANDERS ONTIVEROS, SON, 0 * Community resources currently utilized Other 0 * Please name any agencies selected above. OUTPATIENT DIALYSIS, [facility], [facility], 1100, MEDICAID TRANSPORT AT 1030AM 0 * Additional services required to return to the preadmission environment? Yes * Can the patient safely return to the preadmission environment? Yes 0 * Has this patient been hospitalized within the prior 30 days at any hospital? Yes [address] IVEY WHO REPORTS THAT PLANNED DISCHARGE HOME IS TOMORROW AND PT WILL NEED HOME HEALTH FOR WOUND CARE TO LEGS. CM MET WITH PT IN ROOM TO DISCUSS DISCHARGE PLANNING AND NEEDS. PT REPORTS LIVING AT HOME INDEPENDENTLY WITH SPOUSE WHO IS "BEDRIDDEN", SON AND DAUGTHER IN LAW. PT HAS CPAP, HOME OXYGENAND ROLLING WALKER; PT'S CPAP FROM OR, OXYGEN FROM [facility]. PT HAS NO OUTSIDE SERVICES ASSISTING IN THE HOME. PT GOES TO OUTPATIENT DIALYSIS, [facility], 1100AM, [facility] MEDICAID TRANSPORTATION. CM DISCUSSED AVAILABILITY OF HOME HEALTH, REHAB SERVICES AND MEDICAL EQUIPMENT. PT WOULD LIKE HOME HEALTH WITH [facility] OR [facility], ANNE MARIE SIGNED. PT REPORTS HIS SON OR BROTHER WILL PICK HIM UP FOR DISCHARGE HOME TOMORROW. IMPORTANT MESSAGE FROM MEDICARE PROVIDED AND EXPLAINED. CM CALLED [facility], SPOKE TO ANTONIA WHO REPORTED THAT THEY CAN ADMIT PT ON SATURDAY, WILL NEED SIGNED ORDER, NAMES AND PHONE NUMBERS OF TRAINABLE CAREGIVERS WELL REFERRAL FAXED TO THEM. CM CALLED [facility], , SPOKE TO MARLA WHO REPORTED [facility] CAN ADMIT ON SATURDAY. CM FAXED REFERRAL WITH WOUND CARE INSTRUCTIONS TO [facility] AT [phone]. CM CALLED [facility], SPOKE TO ANTONIA, NOTIFIED HER THAT OTHER ARRANGEMENTS HAD BEEN MADE. CM TO COMPLETE HOME HEALTH ARRANGEMENT FOR DISCHARGE HOME WITH HOME HEALTH ORDERS FROM PHYSICIAN. WHEN ORDER RECEIVED, NOTIFY [facility] AT [phone], FAX ORDER AND DISCHARGE INFORMATION TO [facility] AT [phone]. Online Merchandising Manager: Kulwant Elder
[2017-10-15 21:12] VITALS: BP 89/55
[2017-10-16 00:48] VITALS: BP 91/52
--- NOTE | 2017-10-16 00:57 | NUR ---
PT IN BED RESTING QUIETLY. BREATHING EVEN AND UNLABORED. BED IN LOW POSITION, CALL LIGHT WITHIN REACH. WILL CTM.
--- NOTE | 2017-10-16 01:47 | NUR ---
PPT PULLED IV OUT, 4 ATTEMPTS TO START A NEW IV FAILED. PT REFUSED TO BE STUCK AGAIN AT THIS TIME. CALL LIGHT IN REACH.
[2017-10-16 05:33] VITALS: BP 79/43
[2017-10-16 05:47] LABS: BASOPHILS 0.9 % (0-2); EOSINOPHILS 2.5 % (0-7); HEMATOCRIT 33.4 % (42.0-54.0); HEMOGLOBIN 10.8 g/dL (13.5-17.5); IMMATURE GRANULOCYTES 0.2 % (0-5); LYMPHOCYTES 19.3 % (15-50); MCH 33.5 pg (26.0-34.0); MCHC 32.3 g/dL (31.0-37.0); MCV 103.7 fL (80.0-100.0); MEAN PLATELET VOLUME 11.7 fL (7.4-10.4); MONOCYTES 12.3 % (2-11); NEUTROPHILS 64.8 % (40-80); PLATELET COUNT 122 10x3/uL (130-400); RBC 3.22 10x6/uL (4.20-6.10); RDW 17.3 % (11.5-14.5); WBC 5.5 10x3/uL (4.8-10.8)
[2017-10-16 05:57] LABS: CALCIUM 8.5 mg/dL (8.5-10.1); CARBON DIOXIDE 28.6 mmol/L (21.0-32.0); CREATININE - SERUM 4.4 mg/dL (0.6-1.3); PHOSPHOROUS 4.5 mg/dL (2.5-4.9); VANCOMYCIN - RANDOM 13.5 ug/mL (10.0-20.0)
[2017-10-16 06:00] LABS: ANION GAP 11.4 mmol/L (8-16)
[2017-10-16 07:46] VITALS: BP 85/51
--- NOTE | 2017-10-16 07:50 | NUR ---
AM ROUNDING- RECEIVED REPORT FROM BARREL DEDENTING MACHINE OPERATOR NURSE MAGGIE. PT IS CURRENTLY SITTING UP ON SIDE OF BED WONDERING WHEN HE WILL GO HOME. PT IS ON 02 AT 3L VIA NC. NO MONITOR. NO IV ACCESS CURRENTLY (BARREL DEDENTING MACHINE OPERATOR STATED THEY STUCK PT 4X). RESERVE RIGHT ARM FOR AVF. NO NEED AT THIS CURRENT TIME. WILL CONTINUE TO MONITOR AND CONTINUE WITH PLAN OF CARE.
[2017-10-16] MEDS ORDERED: ULTRAM50 MG PO (11:21)
--- NOTE | 2017-10-16 12:46 | NUR ---
PT IV CAME OUT LAST NIGHT. PT HAS CLEAN DRESSINGS. PT SIGNED DISCHARGE PAPERS AND STATES VU. PT TO DISCHARGE VIA WHEELCHAIR WITH BROTHER TO HOME.
[2017-10-16 12:51] VITALS: BP 82/47
--- NOTE | 2017-10-16 12:57 | NUR ---
Patient Name: HELLEN ONTIVEROS Encounter No: [id number] : 1945 Primary Insurance: MEDICARE A & B Anticipated DC Date: 10-16-2017 Planned Disposition: Home with Home Health External Planned Provider: [facility] DCP follow-up note: CM RECEIVED HOME HEALTH ORDERS FROM PHYSICIAN, CALLED MARLA AT [facility] AT [phone], [facility] TO ADMIT BY SATURDAY MORNING, CM REQUESTED ADMIT SATURDAY MORNING OR SATURDAY AFTERNOON (BEFORE OR AFTER DIALYSIS). CM FAXED ORDER AND DISCHARGE INFORMATION TO [facility] AT [phone]. PT NOTIFIED, DENIES FURTHER DICHARGE NEEDS. Dredge Pipeman: Kulwant Elder
--- NOTE | 2017-10-16 13:45 | NUR ---
PT IS CURRENTLY SITTING UP IN CHAIR AWAITING TO BE D/C. WILL CONTINUE TO MONITOR.
--- NOTE | 2017-10-16 13:58 | NUR ---
PT D/C VIA WHEELCHAIR.
--- NOTE | 2017-10-17 11:44 | DS ---
PATIENT:HELLEN ONTIVEROS :[birth year] MEDICAL RECORD: [id number] DISCHARGE SUMMARY ADMISSION DATE: 10/09/17 DISCHARGE DATE: 10/16/17 HOSPITAL COURSE: This is a 72-year-old male with bilateral peripheral artery disease and he was admitted with cellulitis of his lower extremity. He had been treated with vanc and Zosyn. His daughter, he, and I had a good conversation in regards to his peripheral artery disease. He has difficulty staying on dialysis treatment, difficulty with fluid and dietary restrictions. Unfortunately, we have done the best we can with his lower extremities. I wanted him to go see Dr. Estrada as an outpatient and he indicated that that is somewhat of a 4-hour drive. We are having to discontinue his Zosyn and discharge him to home now and we will continue vancomycin for the next week on dialysis if he can attend his dialysis. He is alert and oriented times 3. Normocephalic, atraumatic. Clear nares. Clear throat. The cellulitis is better. Chest is regular rate and rhythm and lungs are clear, now after dialysis on Tuesdays, , and Saturdays. His home medications, he has been responding to Ultram. He was on Eliquis 5 mg a day, which we will go ahead and resume. His other medications are generally phosphate binders, Imodium, allopurinol 200 mg once a day, Neurontin 300 mg twice a day. He had been on Restoril hereby in the hospital, but has been somnolent in the morning and we will see if just his Celexa 10 mg at night will help, TriCor 48 mg at night. We will continue all of his home medications. I may not have them correct in the computer as they are not as accurate as my dialysis unit and after I finished his conversation, we will contact his dialysis unit for his medications, vancomycin, and followup. We see him either on Tuesdays or every week on dialysis when he attends, continue with renal diet and fluid restriction. We are praying for the best for this nice gentleman. He has a long report from his AFRO in interventional radiology, which we appreciate. Unfortunately, there is no intervention. He is still allergic to HALDOL AND MORPHINE. I did consider discontinuing his Eliquis, but he would like to remain on his medication due to his risk of blood clots. He is stable on discharge. TRANSINT:[id number] Voice Confirmation ID: [id number] DOCUMENT ID: [id number] LING HOLDER MD at 1144 CC: [id number] DICTATION DATE: 10/16/17 1146 FURNITURE DIPPER: 10/17/17 0146 DIS IN 10/16/17 [place] [id number] [place] [id number]
== END 2017-10-16 13:58 | disposition home health service (06) | DRG 602 ==
LOC: D.SDCHOLD 08:24 → D.M2 08:44
PROVIDERS: General Practice; Internal Medicine Nephrology; Specialist; ADMIT Internal Medicine Nephrology
PROC: B41F1ZZ Fluoroscopy of Right Lower Extremity Arteries using Low Osmolar Contrast (ICD-10-PCS; 2017-10-14)
PROC: B41G1ZZ Fluoroscopy of Left Lower Extremity Arteries using Low Osmolar Contrast (ICD-10-PCS; principal; 2017-10-14 15:30)
DX: L03.116 Cellulitis of left lower limb (principal); N18.6 End stage renal disease; R18.8 Other ascites; L97.929 Non-pressure chronic ulcer of unspecified part of left lower leg with unspecified severity; L97.919 Non-pressure chronic ulcer of unspecified part of right lower leg with unspecified severity; L03.115 Cellulitis of right lower limb; E11.51 Type 2 diabetes mellitus with diabetic peripheral angiopathy without gangrene; E11.621 Type 2 diabetes mellitus with foot ulcer; L97.509 Non-pressure chronic ulcer of other part of unspecified foot with unspecified severity; K74.60 Unspecified cirrhosis of liver; I50.9 Heart failure, unspecified; E11.22 Type 2 diabetes mellitus with diabetic chronic kidney disease; Z99.2 Dependence on renal dialysis; I70.249 Atherosclerosis of native arteries of left leg with ulceration of unspecified site; I70.239 Atherosclerosis of native arteries of right leg with ulceration of unspecified site

== ENCOUNTER → 2017-11-11 13:01 | Outpatient (CLI) | payer MEDICARE, OTHER ==
[2017-10-10 10:47] VITALS: BMI 30.4
[~2017-11-11 13:01] MED LIST changes: +CELEXA10 MG PO; +ELIQUIS5 MG PO; +FENOFIBRATE54 MG PO; +ZYLOPRIM100 MG PO
== END | disposition home or self-care (01) ==
LOC: D.US 13:01
DX: I87.003 Postthrombotic syndrome without complications of bilateral lower extremity (principal)

== ENCOUNTER 2017-12-05 10:34 | Emergency (ER) | payer MEDICARE, OTHER ==
[2017-10-10 10:47] VITALS: BMI 30.4
[2017-12-05 11:44] LABS: BASOPHILS 0.8 % (0-2); HEMATOCRIT 34.8 % (42.0-54.0); HEMOGLOBIN 11.4 g/dL (13.5-17.5); IMMATURE GRANULOCYTES 0.2 % (0-5); MCH 33.3 pg (26.0-34.0); MCHC 32.8 g/dL (31.0-37.0); MCV 101.8 fL (80.0-100.0); MEAN PLATELET VOLUME 10.6 fL (7.4-10.4); MONOCYTES 7.5 % (2-11); NEUTROPHILS 72.5 % (40-80); PLATELET COUNT 138 10x3/uL (130-400); RBC 3.42 10x6/uL (4.20-6.10); RDW 17.7 % (11.5-14.5); WBC 5.2 10x3/uL (4.8-10.8)
[2017-12-05 12:03] LABS: ALBUMIN 2.4 g/dL (3.4-5.0); ANION GAP 14.9 mmol/L (8-16); BILIRUBIN - TOTAL 1.56 mg/dL (0.2-1.3); CALCIUM 8.3 mg/dL (8.5-10.1); CARBON DIOXIDE 25.4 mmol/L (21.0-32.0); CREATININE - SERUM 7.6 mg/dL (0.6-1.3); POTASSIUM - SERUM 3.3 mmol/L (3.5-5.1)
[2017-12-05 12:15] LABS: INR 1.61 (0.85-1.17); PROTIME 18.7 SECONDS (11.6-15.0)
[2017-12-05 12:20] LABS: MAGNESIUM - SERUM 2.2 mg/dL (1.8-2.4); URIC ACID 4.4 mg/dL (2.6-7.2)
[2017-12-05 12:31] LABS: TROPONIN-I 0.145 ng/mL (0.000-0.060)
== END 2017-12-05 23:38 | disposition home or self-care (01) ==
LOC: D.ER 10:34
PROVIDERS: Emergency Medicine
DX: R06.00 Dyspnea, unspecified (principal); I48.91 Unspecified atrial fibrillation; J90 Pleural effusion, not elsewhere classified; N18.6 End stage renal disease; E87.6 Hypokalemia; I45.10 Unspecified right bundle-branch block; I45.4 Nonspecific intraventricular block

== ENCOUNTER 2017-12-20 18:32 | Inpatient (IN) | payer MEDICARE, OTHER ==
[~2017-12-20] VITALS: Ht 182.9 cm; Wt 91.2 kg
--- NOTE | ~2017-12-20 | EC ---
PATIENT:HELLEN ONTIVEROS DATE OF SERVICE: 12/20/17 SEX: M MEDICAL RECORD: [id number] DATE OF : [birth year] LOCATION:D. D.213 AGE OF PATIENT: 72 ADMISSION DATE: 12/20/17 REFERRING PHYSICIAN: INTERPRETING PHYSICIAN: ARNULFO SCHNEIDER MD ECHOCARDIOGRAM REPORT ECHO CHARGES 4 ECHO COMPLETE CLINICAL DIAGNOSIS: HYPOTENSION/ARRHYTHMIAS ECHOCARDIOGRAPHIC MEASUREMENTS (adult normal given) AC root (d.<3.7cm) 4.1 cm LV Septum d (<1.2 cm> 1.4 cm Valve Excursion 0.7 cm LV Septum (systole) 1.8 cm Left Atria (s.<4.0cm> 4.8 cm LVPW d(<1.2cm) 1.2 cm RV (d.<2.3cm) 4.0 cm LVPW (sytole) 1.5 cm LV diastole(<5.6CM) 6.7 cm MV E-F(>70mm/sec) cm LV systole 5.3 cm LVOT Diameter 2.3 cm MV exc.(>10mm) cm Est.ejection fraction (50-75%) % Pericardial Effusion N DOPPLER: LVIT cm/sec A cm/sec E 110 cm/sec LA cm/sec RVSP 57.4 mmHg LVOT 63.0 cm/sec AOP1/2T m/s Asc. Ao 407 cm/sec RVOT 97.0 cm/sec RA cm/sec PA 116 cm/sec AV Gradient Peak 66.4 mmHg AV Mean 39.0 mmHg AV Area 0.6 cm MV Gradient Peak 6.1 mmHg MV Mean 2.5 mmHg MV Area cm COMMENTS: Mold Injector: Francheska ESPINOZADSOE Airline Mechanic: 4 Dr. Schneider TAPE# PACS DATE OF SERVICE: 12/22/2017 PROCEDURE: Transthoracic echocardiogram. FINDINGS: 1. The left ventricle is dilated. The patient has marked global wall motion abnormalities. Overall, ejection fraction is 10% to 15%. 2. The aortic valve is severely stenosed with a peak gradient of 66.4. Valve area of 0.6 cm-squared. 3. The mitral valve has moderate mitral regurgitation. ECHOCARDIOGRAM REPORT [id number] HELLEN ONTIVEROS 4. The tricuspid valve has severe tricuspid regurgitation, RVSP of 57 mmHg. 5. The pericardium is normal. 6. The right atrium is severely dilated. 7. The right ventricle is severely dilated. CONCLUSION: Overall, the patient has a global cardiomyopathy with severely dilated 4-chamber severe aortic stenosis and moderate to severe mitral regurgitation. There is no pericardial effusion. TRANSINT:[id number] Voice Confirmation ID: [id number] DOCUMENT ID: [id number] 12/25/2017 Edited to correct date of service, dmm. ARNULFO SCHNEIDER MD at 0807 CC: [id number] DICTATION DATE: 12/23/17 0737 PROFESSOR OF THEATRE: 12/23/17 0955 ADM IN [facility] [address] [place] [id number]
--- NOTE | ~2017-12-20 | CN ---
PATIENT NAME:HELLEN ONTIVEROS MEDICAL RECORD: [id number] : [birth year] LOCATION:[facility] D.2135 ADMIT DATE: 12/20/17 ACCOUNT: [id number] CONSULTING PHYSICIAN: BELÉN KILPATRICK MD REFERRING PHYSICIAN: CHANDAN MONZON MD DATE OF CONSULTATION: 12/23/2017 CARDIOLOGY CONSULT DIAGNOSES: 1. Nonsustained ventricular tachycardia. 2. Severe aortic stenosis. 3. Severe cardiomyopathy. 4. Pneumonia. 5. Septic shock. 6. End-stage renal failure on dialysis. HISTORY OF PRESENT ILLNESS: This is a gentleman who presents with noncardiac issues found to have a mildly elevated troponin, had a 17-beat run of ventricular tachycardia. He had an echocardiogram done here. He has severe aortic stenosis, valve area less than 0.5 cm squared and a gradient of 66 mm across the valve. The EF of 10% to 15%. He is followed by Cardiology at [facility]. He has been told that he has the cardiomyopathy and aortic valve and that this was inoperable and nothing to be done about this due to his multiple other comorbidities. PHYSICAL EXAMINATION: GENERAL APPEARANCE: Well-nourished, well-developed, appears stated age. Level of distress, comfortable. PSYCHIATRIC: Mental status, alert, normal affect. Orientation, oriented to time, place and person. EYES: Lids and conjunctiva, noninjected. No discharge, no pallor. ENT: Lips, teeth, gums, normal dentition. Oropharynx, no cyanosis, no pallor. NECK: Carotid arteries, bilateral normal upstroke, no bruits, no thrills. JUGULAR VEINS: No jugular venous pressure or distention. CERVICAL LYMPH NODES: Nontender, nonenlarged. THYROID: Not enlarged. Nontender. No nodules. LUNGS: Respiratory effort, unlabored. CHEST: Normal curvature. No thoracic deformity. No chest wall tenderness. Percussion, resonant. Auscultation, clear. No wheezes, no rales, no rhonchi. CARDIOVASCULAR: Precordial exam, nondisplaced. No heaves or pericardial thrills. Rate and rhythm, regular. Heart sounds, normal S1, normal S2. No S3, no gallop, no rub. Systolic murmur, not heard. Diastolic murmur, not heard. EXTREMITIES: No cyanosis, no edema. Peripheral pulses, full and equal in all extremities, except as noted. No bruits appreciated. ABDOMEN: Soft, nondistended. Normal aorta. No bruit. Nontender. No masses. Liver, nontender, no hepatomegaly. Spleen, nontender, no splenomegaly. MUSCULOSKELETAL: No joint tenderness. No joint swelling. No erythema. NEUROLOGICAL: Normal gait, normal strength, normal tone. SKIN: Warm and dry. REVIEW OF SYSTEMS: The patient reports easy bruising but reports no swollen glands. The patient reports no fever, no night sweats, no significant weight gain, no significant weight loss. No significant exercise tolerance. The patient reports no dry eyes, no irritation, no vision change. Patient reports CONSULT REPORT [id number] HELLEN ONTIVEROS no difficulty hearing and no ear pain. Patient reports no frequent nose bleeds or nose and sinus problems. Patient reports on arm pain on exertion. No shortness of breath while lying down. No history of heart murmur. Patient reports no cough, no wheezing or coughing up blood. Patient reports no abdominal pain, no vomiting. Normal appetite. No diarrhea and not vomiting blood. No nausea and no constipation. Patient reports no incontinence. No difficulty urinating. No hematuria. No increased frequency. Patient reports no muscle aches. No weakness, no arthralgias, no back pain. No swelling of the extremities. Patient reports no abnormal mole, no jaundice, no rashes. Reports no loss of consciousness. No weakness and no numbness. No seizures, dizziness, or headaches. The patient reports no depression, no sleep disturbance, feeling safe in a relationship and no alcohol abuse. Patient reports on fatigue. Reports no runny nose or sinus pressure. No itching, no hives, and no frequent sneezing. OVERALL IMPRESSION: Nonsustained ventricular tachycardia. He is on no pharmacologic agent for the ventricular tachycardia. Agree that he is inoperable from the standpoint of the aortic stenosis due to the cardiomyopathy. We will start Cordarone 200 mg b.i.d. No other cardiac workup or treatment is necessary at this time. TRANSINT:[id number] Voice Confirmation ID: [id number] DOCUMENT ID: [id number] BELÉN KILPATRICK MD at 1153 CC: [id number] DICTATION DATE: 12/23/17 1057 ADJUNCT PSYCHOLOGY PROFESSOR: 12/23/17 1122 DIS IN 12/29/[address] [facility] [address] [place] [address]
[2017-12-20 19:31] LABS: BASOPHILS 0.4 % (0-2); EOSINOPHILS 0.4 % (0-7); HEMATOCRIT 38.5 % (42.0-54.0); HEMOGLOBIN 12.4 g/dL (13.5-17.5); IMMATURE GRANULOCYTES 0.3 % (0-5); LYMPHOCYTES 16.8 % (15-50); MCH 32.7 pg (26.0-34.0); MCHC 32.2 g/dL (31.0-37.0); MCV 101.6 fL (80.0-100.0); MEAN PLATELET VOLUME 10.9 fL (7.4-10.4); MONOCYTES 6.8 % (2-11); NEUTROPHILS 75.3 % (40-80); PLATELET COUNT 127 10x3/uL (130-400); RBC 3.79 10x6/uL (4.20-6.10); RDW 17.4 % (11.5-14.5)
[2017-12-20 19:39] LABS: ALBUMIN 2.7 g/dL (3.4-5.0); ANION GAP 19.3 mmol/L (8-16); BILIRUBIN - TOTAL 1.46 mg/dL (0.2-1.3); CALCIUM 8.4 mg/dL (8.5-10.1); CARBON DIOXIDE 24.6 mmol/L (21.0-32.0); CREATININE - SERUM 7.2 mg/dL (0.6-1.3); POTASSIUM - SERUM 4.9 mmol/L (3.5-5.1); PROTEIN - SERUM 8.2 g/dL (6.4-8.2)
[2017-12-21] VITALS (52 sets, daily range): BP systolic 79–142; BP diastolic 46–103; BMI 26.3
[2017-12-22] VITALS (72 sets, daily range): BP systolic 81–132; BP diastolic 35–106
[2017-12-22 06:51] LABS: BASOPHILS 0.3 % (0-2); EOSINOPHILS 0.3 % (0-7); HEMATOCRIT 36.8 % (42.0-54.0); HEMOGLOBIN 11.9 g/dL (13.5-17.5); IMMATURE GRANULOCYTES 0.2 % (0-5); LYMPHOCYTES 11.5 % (15-50); MCH 33.1 pg (26.0-34.0); MCHC 32.3 g/dL (31.0-37.0); MCV 102.2 fL (80.0-100.0); MEAN PLATELET VOLUME 10.2 fL (7.4-10.4); MONOCYTES 6.9 % (2-11); NEUTROPHILS 80.8 % (40-80); PLATELET COUNT 120 10x3/uL (130-400); RDW 17.5 % (11.5-14.5)
[2017-12-22 06:54] LABS: WBC 8.8 10x3/uL (4.8-10.8)
[2017-12-22 07:07] LABS: ALBUMIN 2.4 g/dL (3.4-5.0); ANION GAP 18.1 mmol/L (8-16); BILIRUBIN - TOTAL 1.77 mg/dL (0.2-1.3); CALCIUM 8.8 mg/dL (8.5-10.1); CREATININE - SERUM 5.4 mg/dL (0.6-1.3); POTASSIUM - SERUM 4.1 mmol/L (3.5-5.1); PROTEIN - SERUM 7.8 g/dL (6.4-8.2)
[2017-12-23] VITALS (34 sets, daily range): BP systolic 83–112; BP diastolic 49–82
[2017-12-23 07:49] LABS: ALBUMIN 2.3 g/dL (3.4-5.0); ALKALINE PHOSPHATASE 86 U/L (46-116); ALT (SGPT) 32 U/L (10-68); BILIRUBIN - TOTAL 1.63 mg/dL (0.2-1.3); CALC OSMOLALITY 291 mosm/kg (275-300); CALCIUM 8.9 mg/dL (8.5-10.1); CARBON DIOXIDE 23.1 mmol/L (21.0-32.0); CHLORIDE - SERUM 98 mmol/L (98-107); CKMB 2.7 U/L (0.0-3.6); CREATINE KINASE 51 UL (21-232); CREATININE - SERUM 6.5 mg/dL (0.6-1.3); GLUCOSE 85 mg/dL (74-106); POTASSIUM - SERUM 4.1 mmol/L (3.5-5.1); PROTEIN - SERUM 7.5 g/dL (6.4-8.2); SODIUM 136 mmol/L (136-145); UREA NITROGEN 70 mg/dL (7-18); eGFR NON AFRICAN AMERICAN 9 mL/min (90-120)
[2017-12-23 07:53] LABS: TROPONIN-I 0.286 ng/mL (0.000-0.060)
[2017-12-24] VITALS (18 sets, daily range): BP systolic 75–121; BP diastolic 40–92
[2017-12-24 05:00] LABS: BASOPHILS 0.2 % (0-2); EOSINOPHILS 0.6 % (0-7); HEMOGLOBIN 11.9 g/dL (13.5-17.5); IMMATURE GRANULOCYTES 0.2 % (0-5); LYMPHOCYTES 16.3 % (15-50); MCH 33.2 pg (26.0-34.0); MCHC 33.1 g/dL (31.0-37.0); MCV 100.6 fL (80.0-100.0); MEAN PLATELET VOLUME 10.2 fL (7.4-10.4); MONOCYTES 7.6 % (2-11); NEUTROPHILS 75.1 % (40-80); PLATELET COUNT 103 10x3/uL (130-400); RBC 3.58 10x6/uL (4.20-6.10); RDW 17.4 % (11.5-14.5); WBC 6.3 10x3/uL (4.8-10.8)
[2017-12-24 05:27] LABS: ANION GAP 21.5 mmol/L (8-16); CALCIUM 8.6 mg/dL (8.5-10.1); CARBON DIOXIDE 21.8 mmol/L (21.0-32.0); CREATININE - SERUM 6.9 mg/dL (0.6-1.3); POTASSIUM - SERUM 4.3 mmol/L (3.5-5.1); VANCOMYCIN - RANDOM 9.5 ug/mL (10.0-20.0)
[2017-12-24 05:33] LABS: PHOSPHOROUS 9.2 mg/dL (2.5-4.9)
[2017-12-25] VITALS: BP 89/54
[2017-12-25 03:43] LABS: BASOPHILS 0.2 % (0-2); EOSINOPHILS 0.7 % (0-7); HEMATOCRIT 37.7 % (42.0-54.0); HEMOGLOBIN 12.5 g/dL (13.5-17.5); IMMATURE GRANULOCYTES 0.3 % (0-5); LYMPHOCYTES 13.4 % (15-50); MCH 33.1 pg (26.0-34.0); MCHC 33.2 g/dL (31.0-37.0); MCV 99.7 fL (80.0-100.0); MEAN PLATELET VOLUME 10.6 fL (7.4-10.4); MONOCYTES 7.1 % (2-11); NEUTROPHILS 78.3 % (40-80); PLATELET COUNT 103 10x3/uL (130-400); RBC 3.78 10x6/uL (4.20-6.10); RDW 17.2 % (11.5-14.5); WBC 5.9 10x3/uL (4.8-10.8)
[2017-12-25 03:54] LABS: ANION GAP 18.2 mmol/L (8-16); CALCIUM 8.8 mg/dL (8.5-10.1); CARBON DIOXIDE 23.9 mmol/L (21.0-32.0); CREATININE - SERUM 5.3 mg/dL (0.6-1.3); PHOSPHOROUS 6.9 mg/dL (2.5-4.9); POTASSIUM - SERUM 4.1 mmol/L (3.5-5.1)
[2017-12-25 04:00] VITALS: BP 93/66
[2017-12-25 07:00] VITALS: BP 91/67
[2017-12-25 11:01] VITALS: BP 95/53
[2017-12-25 15:02] VITALS: BP 115/83
[2017-12-26] VITALS: BP 72/50
[2017-12-26 03:35] VITALS: BP 81/57
[2017-12-26 05:15] LABS: BASOPHILS 0.3 % (0-2); EOSINOPHILS 0.9 % (0-7); HEMATOCRIT 39.8 % (42.0-54.0); HEMOGLOBIN 13.1 g/dL (13.5-17.5); IMMATURE GRANULOCYTES 0.3 % (0-5); LYMPHOCYTES 16.5 % (15-50); MCH 33.3 pg (26.0-34.0); MCHC 32.9 g/dL (31.0-37.0); MCV 101.3 fL (80.0-100.0); MEAN PLATELET VOLUME 11.4 fL (7.4-10.4); MONOCYTES 6.1 % (2-11); NEUTROPHILS 75.9 % (40-80); PLATELET COUNT 110 10x3/uL (130-400); RBC 3.93 10x6/uL (4.20-6.10); RDW 17.4 % (11.5-14.5); WBC 6.7 10x3/uL (4.8-10.8)
[2017-12-26 05:49] LABS: ANION GAP 20.6 mmol/L (8-16); CALCIUM 8.9 mg/dL (8.5-10.1); CARBON DIOXIDE 23.1 mmol/L (21.0-32.0); CREATININE - SERUM 6.3 mg/dL (0.6-1.3); PHOSPHOROUS 7.7 mg/dL (2.5-4.9); POTASSIUM - SERUM 3.7 mmol/L (3.5-5.1); VANCOMYCIN - RANDOM 14.6 ug/mL (10.0-20.0)
[2017-12-26 07:59] VITALS: BP 87/63
[2017-12-26 08:58] VITALS: Ht 182.9 cm; Wt 91.2 kg
[2017-12-26 11:12] VITALS: BP 74/48
[2017-12-26 15:11] VITALS: BP 77/48
[2017-12-27] VITALS: BP 70/32
[2017-12-27 04:00] VITALS: BP 70/40
[2017-12-27 06:32] LABS: ANION GAP 16.3 mmol/L (8-16); CALCIUM 8.6 mg/dL (8.5-10.1); CARBON DIOXIDE 26.1 mmol/L (21.0-32.0); POTASSIUM - SERUM 3.4 mmol/L (3.5-5.1); VANCOMYCIN - RANDOM 18.2 ug/mL (10.0-20.0)
[2017-12-27 06:34] LABS: CREATININE - SERUM 4.7 mg/dL (0.6-1.3)
[2017-12-27 06:54] LABS: HEMATOCRIT 37.9 % (42.0-54.0); HEMOGLOBIN 12.3 g/dL (13.5-17.5); MCH 32.8 pg (26.0-34.0); MCHC 32.5 g/dL (31.0-37.0); MCV 101.1 fL (80.0-100.0); MEAN PLATELET VOLUME 11.8 fL (7.4-10.4); RBC 3.75 10x6/uL (4.20-6.10); RDW 17.6 % (11.5-14.5); WBC 5.6 10x3/uL (4.8-10.8)
[2017-12-27 07:00] LABS: PLATELET COUNT 87 10x3/uL (130-400)
[2017-12-27 07:43] LABS: ELLIPTOCYTES OCC; EOSINOPHILS 1 % (0-7); LYMPHOCYTES 9 % (15-50); MONOCYTES 7 % (2-11); NEUTROPHILS 82 % (40-80); PLATELET ESTIMATE DECREASED; TARGET CELLS OCC
[2017-12-27 07:44] LABS: ANISOCYTOSIS OCC; HYPOCHROMASIA OCC; POIKILOCYTOSIS OCC
[2017-12-27 08:53] VITALS: BP 110/56
[2017-12-27 13:36] VITALS: BP 76/49
[2017-12-27 16:27] VITALS: BP 88/55
[2017-12-27 20:00] VITALS: BP 124/101
[2017-12-28] VITALS: BP 79/50
[2017-12-28 04:00] VITALS: BP 94/69
[2017-12-28 06:03] LABS: BASOPHILS 0.4 % (0-2); EOSINOPHILS 1.9 % (0-7); HEMATOCRIT 38.1 % (42.0-54.0); HEMOGLOBIN 12.2 g/dL (13.5-17.5); IMMATURE GRANULOCYTES 0.3 % (0-5); LYMPHOCYTES 15.4 % (15-50); MCH 32.9 pg (26.0-34.0); MCV 102.7 fL (80.0-100.0); MEAN PLATELET VOLUME 12.3 fL (7.4-10.4); MONOCYTES 7.3 % (2-11); NEUTROPHILS 74.7 % (40-80); PLATELET COUNT 120 10x3/uL (130-400); RBC 3.71 10x6/uL (4.20-6.10); RDW 17.6 % (11.5-14.5)
[2017-12-28 06:16] LABS: ANION GAP 17.1 mmol/L (8-16); CARBON DIOXIDE 24.4 mmol/L (21.0-32.0); CREATININE - SERUM 5.7 mg/dL (0.6-1.3); PHOSPHOROUS 6.7 mg/dL (2.5-4.9); POTASSIUM - SERUM 3.5 mmol/L (3.5-5.1); VANCOMYCIN - RANDOM 25.7 ug/mL (10.0-20.0)
[2017-12-28 07:45] VITALS: BP 153/93
[2017-12-28 14:58] VITALS: BP 87/58
[2017-12-28 21:40] VITALS: BP 92/63
[2017-12-29 00:47] VITALS: BP 86/56
[2017-12-29 06:44] VITALS: BP 107/74
[2017-12-29 06:44] LABS: BASOPHILS 0.2 % (0-2); HEMATOCRIT 42.3 % (42.0-54.0); HEMOGLOBIN 13.5 g/dL (13.5-17.5); IMMATURE GRANULOCYTES 0.1 % (0-5); LYMPHOCYTES 15.6 % (15-50); MCHC 31.9 g/dL (31.0-37.0); MCV 103.4 fL (80.0-100.0); MEAN PLATELET VOLUME 10.7 fL (7.4-10.4); MONOCYTES 5.5 % (2-11); NEUTROPHILS 76.6 % (40-80); PLATELET COUNT 113 10x3/uL (130-400); RBC 4.09 10x6/uL (4.20-6.10); RDW 17.8 % (11.5-14.5); WBC 8.4 10x3/uL (4.8-10.8)
[2017-12-29 06:58] LABS: ANION GAP 16.5 mmol/L (8-16); CALCIUM 8.8 mg/dL (8.5-10.1); CARBON DIOXIDE 25.1 mmol/L (21.0-32.0); CREATININE - SERUM 4.7 mg/dL (0.6-1.3); POTASSIUM - SERUM 3.6 mmol/L (3.5-5.1)
[2017-12-29 08:11] VITALS: BP 128/77
[2017-12-29 11:26] VITALS: BP 136/72
[2017-12-29] MEDS ORDERED: CORDARONE200 MG PO (15:08)
[2017-12-29] MEDS ORDERED: AUGMENTIN 500-11 TA1 PO (15:09)
[2017-12-29 16:53] VITALS: BP 131/82
== END 2017-12-29 20:16 | disposition home health service (06) | DRG 871 ==
LOC: D.ER 18:32 → D.CVICU 21:28 → D.M2 21:28 → D.EDHOLD 21:28 → D.M2 22:54 → D.CVICU 12-21 06:14 → D.M2 12-25 21:14
PROVIDERS: Emergency Medicine; Internal Medicine Nephrology
DX: A41.9 Sepsis, unspecified organism (principal); R65.21 Severe sepsis with septic shock; I50.23 Acute on chronic systolic (congestive) heart failure; N18.6 End stage renal disease; J18.9 Pneumonia, unspecified organism; I47.2 Ventricular tachycardia; L03.116 Cellulitis of left lower limb; L03.115 Cellulitis of right lower limb; I35.0 Nonrheumatic aortic (valve) stenosis; E11.22 Type 2 diabetes mellitus with diabetic chronic kidney disease; E11.40 Type 2 diabetes mellitus with diabetic neuropathy, unspecified; E11.51 Type 2 diabetes mellitus with diabetic peripheral angiopathy without gangrene; D63.1 Anemia in chronic kidney disease; E83.39 Other disorders of phosphorus metabolism